=== PATIENT | female | born 1930 | race Caucasian/White ===

== ENCOUNTER 2016-06-12 14:56 | Observation (INO) | payer OTHER, BC ==
[~2016-06-12] VITALS: Ht 170.2 cm; Wt 74.3 kg
[~2016-06-12 14:56] MED LIST: ASPI81TA28; CHOL100010 PO; COEN10CA5; DILT120T8 PO; FLUT110A INH
[2016-06-12] MEDS ORDERED: SODIUM CHLORIDE 0.9% 1000ML 1,000 ML IV SCH (15:20)
--- NOTE | 2016-06-12 15:38 | DIAGNOSTIC IMAGING REPORT ---
CHEST ONE VIEW PORTABLE CLINICAL HISTORY: Stroke dyspnea COMPARISON STUDY: 11/29/2015 FINDINGS: The bones soft tissues and hemidiaphragms are normal. The cardiomediastinal silhouette is normal. The lungs are clear. The pulmonary vasculature is normal. IMPRESSION: Negative chest. Electronically signed by: Melo Buckley M.D. 06/12/2016 3:37 PM Dictated Date/Time: 06/12/2016 3:37 PM
[2016-06-12 16:09] LABS: BASO % 0.6 %; BASO ABS # 0.04 K/uL (0-0.2); COMPLETE YES; EOS % 1.3 %; HEMATOCRIT 49.8 % (37-47); IG% 0.1 %; LYMPH % 19.4 %; LYMPH ABS # 1.31 K/uL (1.2-3.4); MEAN CELL VOLUME 87.4 fL (80-100); MEAN CORPUSCULAR HEMOGLOBIN 29.5 pg (25-34); MEAN CORPUSCULAR HGB CONC 33.7 g/dl (32-36); MEAN PLATELET VOLUME 12.4 fL (7.4-10.4); NEUT % 68.6 %; PLATELET COUNT 152 K/uL (130-400); WHITE BLOOD COUNT 6.77 K/uL (4.8-10.8)
--- NOTE | 2016-06-12 16:33 | DIAGNOSTIC IMAGING REPORT ---
CT HEAD WITHOUT CONTRAST (CT) CLINICAL HISTORY: Stroke ARM AND LEG NUMBNESS COMPARISON STUDY: No previous studies for comparison. TECHNIQUE: Axial CT of the brain is performed from the vertex to the skull base. IV contrast was not administered for this examination. CT DOSE: 537.48 mGy.cm FINDINGS: No intra or extra-axial mass lesions are visualized. There is no CT evidence of acute cortical infarction. There is no evidence of midline shift. There is no acute hemorrhage. No calvarial fractures are visualized. There are patchy white matter hypodensities likely on a small vessel basis. There is no evidence of pathologic ventricular dilatation. There is no evidence of acute sinusitis IMPRESSION: No acute intracranial findings Electronically signed by: Mack Sarkar M.D. 06/12/2016 4:31 PM Dictated Date/Time: 06/12/2016 4:29 PM
[2016-06-12 16:39] LABS: URINE APPEARANCE CLOUDY (CLEAR); URINE BILIRUBIN NEG (NEG); URINE COLOR YELLOW; URINE NITRITE POS (NEG); URINE SPECIFIC GRAVITY 1.018 (1.000-1.030); UROBILINOGEN NEG (NEG)
[2016-06-12 16:41] LABS: BLOOD UREA NITROGEN 12 mg/dl (7-18); BUN/CREATININE RATIO 17.2 (10-20); CALCIUM 9.2 mg/dl (8.5-10.1); CARBON DIOXIDE 28 mmol/L (21-32); CHLORIDE 107 mmol/L (98-107); CKMB/CK RATIO 2.2 (0-3.0); CREATININE 0.71 mg/dl (0.60-1.20); GLUCOSE 87 mg/dl (70-99); POTASSIUM 4.3 mmol/L (3.5-5.1); SODIUM 143 mmol/L (136-145)
[2016-06-12 16:45] LABS: MANUAL MICROSCOPIC REQUIRED? NO; REVIEW REQ? NO
[2016-06-12 17:08] LABS: BENZODIAZEPINE, URINE NEG (NEG); COCAINE,URINE NEG (NEG); PHENCYCLIDINE, URINE NEG (NEG)
[2016-06-12 17:42] LABS: PARTIAL THROMBOPLASTIN RATIO 0.9; PROTHROMBIN TIME (PATIENT) 10.8 SECONDS (9.0-12.0)
[2016-06-12] MEDS ORDERED: HydrALAZINE HCL 20 MG/ML VIAL IV. PRN (18:00)
[2016-06-12] MEDS ORDERED: MAGNESIUM HYDROXIDE SUSP 30 ML UDC PO PRN (18:00)
[2016-06-12] MEDS ORDERED: ONDANSETRON INJ 2 MG/ML 2 ML VIAL IV PRN (18:00)
[2016-06-12] MEDS ORDERED: ACETAMINOPHEN 325 MG TAB PO PRN (18:00)
[2016-06-12] MEDS ORDERED: PHARMACIST DISCHARGE MED REC CONSULT PRN (18:00)
[2016-06-12] MEDS ORDERED: NITROGLYCERIN 0.4 MG SL PER TAB CHARGE SL PRN (18:00)
[2016-06-12] MEDS ORDERED: POLYETHYLENE (MIRALAX) 17 GM PACK PO PRN (18:00)
[2016-06-12] MEDS ORDERED: ALUMINUM/MAGNESIUM/SIMETH (MAALOX MAX) 30 ML UDC PO PRN (18:00)
--- NOTE | 2016-06-12 18:12 | EMERGENCY ROOM VISIT NOTE ---
History Report prepared by Mark: Saleem Lyons Under the Supervision of: Dr. Abhijit Gonsalez M.D. First contact with patient: 15:08 Chief Complaint: STROKE SYMPTOMS Stated Complaint: NUMBNESS ARM AND LEG, UNSTEADY History of Present Illness The patient is a 86 year old female who presents to the Emergency Room with complaints of numbness in her left arm and left foot starting 2 hours ago. She describes the numbness to be located from her elbow down and from her ankle down. She states that her left arm and ankle feels "off" compared to the right side. She reports some weakness on the left side but she is not sure if it is due to her symptoms of numbness. She denies any issues with speech, trouble swallowing, fevers, chills, headache, or any other complaints. As per family member, the patient was evaluated a few months ago for similar symptoms and she was diagnosed with a severe UTI. The patient has a history of TIA. She denies any history of hypertension. Source of History: patient Onset: 2 hours ago Position: arm (left), foot (left) Quality: numbness Associated Symptoms: + weakness, No chills, No fevers, No headache Review of Systems See HPI for pertinent positives & negatives. A total of 10 systems reviewed and were otherwise negative. Past Medical & Surgical Medical Problems: (1) Asthma (2) Breast cancer (3) Cardiac stent (4) Hyperlipidemia (5) Osteopenia (6) TIA (transient ischemic attack) Family History Cancer Social History Smoking Status: Never Smoker Alcohol Use: occasionally Marital Status: Occupation Status: retired Current/Historical Medications Scheduled Aspirin (Aspirin Ec), 81 DAILY Diltiazem Hcl (Cardizem), 120 MG PO DAILY Fluticasone Propionate Hfa (Flovent Hfa 110MCG Inhaler), 1 PUFF INH BID Allergies Coded Allergies: No Known Allergies (Unverified , 06/12/16) Physical Exam Vital Signs Date Time Temp Pulse Resp B/P Pulse Ox O2 Delivery O2 Flow Rate FiO2 06/12/16 16:17 90 06/12/16 16:17 88 183/100 06/12/16 15:58 96 Room Air 06/12/16 15:00 36.7 72 18 184/95 99 Room Air Physical Exam Constitutional: Vital signs reviewed. Eyes: Pupils are equal round reactive to light. Conjunctiva are noninjected. ENT: Pharynx is clear without erythema or exudate. Mucous membranes are moist. Neck supple without meningeal signs. Respiratory: Clear to auscultation bilaterally. Breath sounds are equal bilaterally. Cardiovascular: Regular rate and rhythm. No rubs or gallops. GI: Soft, nondistended and nontender. Bowel sounds are present. Musculoskeletal: No peripheral edema. No lower extremity tenderness. Integumentary: No cyanosis. Neurological: The patient is awake and alert. Cranial nerves II-XII are intact. Motor is 5 out of 5 all extremities. Sensation is intact to light touch all extremities. Normal speech. Normal gait. No pronator drift. No limb ataxia. Psychiatric: Normal affect. Medical Decision & Procedures ER Provider Diagnostic Interpretation: X-ray results as stated below per interpretation by me and the radiologist: CHEST ONE VIEW PORTABLE CLINICAL HISTORY: Stroke dyspnea COMPARISON STUDY: 11/29/2015 FINDINGS: The bones soft tissues and hemidiaphragms are normal. The cardiomediastinal silhouette is normal. The lungs are clear. The pulmonary vasculature is normal. IMPRESSION: Negative chest. Electronically signed by: Melo Buckley M.D. 06/12/2016 3:37 PM Dictated Date/Time: 06/12/2016 3:[address] results as stated below per my review and radiologist interpretation. CT HEAD WITHOUT CONTRAST (CT) CLINICAL HISTORY: Stroke ARM AND LEG NUMBNESS COMPARISON STUDY: No previous studies for comparison. TECHNIQUE: Axial CT of the brain is performed from the vertex to the skull base. IV contrast was not administered for this examination. CT DOSE: 537.48 mGy.cm FINDINGS: No intra or extra-axial mass lesions are visualized. There is no CT evidence of acute cortical infarction. There is no evidence of midline shift. There is no acute hemorrhage. No calvarial fractures are visualized. There are patchy white matter hypodensities likely on a small vessel basis. There is no evidence of pathologic ventricular dilatation. There is no evidence of acute sinusitis IMPRESSION: No acute intracranial findings Electronically signed by: Mack Sarkar M.D. 06/12/2016 4:31 PM Dictated Date/Time: 06/12/2016 4:29 PM Laboratory Results 06/12/16 15:48 Red Blood Count 5.70, Mean Corpuscular Volume 87.4, Mean Corpuscular Hemoglobin 29.5, Mean Corpuscular Hemoglobin Concent 33.7, Mean Platelet Volume 12.4, Neutrophils (%) (Auto) 68.6, Lymphocytes (%) (Auto) 19.4, Monocytes (%) (Auto) 10.0, Eosinophils (%) (Auto) 1.3, Basophils (%) (Auto) 0.6, Neutrophils # (Auto ) 4.64, Lymphocytes # (Auto) 1.31, Monocytes # (Auto) 0.68, Eosinophils # (Auto ) 0.09, Basophils # (Auto) 0.04 06/12/16 15:48 Test 06/12/16 15:48 06/12/16 15:55 06/12/16 16:20 06/12/16 17:20 White Blood Count 6.77 K/uL (4.8-10.8) Red Blood Count 5.70 M/uL (4.2-5.4) Hemoglobin 16.8 g/dL (12.0-16.0) Hematocrit 49.8 % (37-47) Mean Corpuscular Volume 87.4 fL (80-100) Mean Corpuscular Hemoglobin 29.5 pg (25-34) Mean Corpuscular Hemoglobin Concent 33.7 g/dl (32-36) Platelet Count 152 K/uL (130-400) Mean Platelet Volume 12.4 fL (7.4-10.4) Neutrophils (%) (Auto) 68.6 % Lymphocytes (%) (Auto) 19.4 % Monocytes (%) (Auto) 10.0 % Eosinophils (%) (Auto) 1.3 % Basophils (%) (Auto) 0.6 % Neutrophils # (Auto) 4.64 K/uL (1.4-6.5) Lymphocytes # (Auto) 1.31 K/uL (1.2-3.4) Monocytes # (Auto) 0.68 K/uL (0.11-0.59) Eosinophils # (Auto) 0.09 K/uL (0-0.5) Basophils # (Auto) 0.04 K/uL (0-0.2) RDW Standard Deviation 45.6 fL (36.4-46.3) RDW Coefficient of Variation 14.3 % (11.5-14.5) Immature Granulocyte % (Auto) 0.1 % Immature Granulocyte # (Auto) 0.01 K/uL (0.00-0.02) Anion Gap 8.0 mmol/L (3-11) Est Creatinine Clear Calc Drug Dose 60.1 ml/min Estimated GFR () 89.4 Estimated GFR (Non- 77.1 BUN/Creatinine Ratio 17.2 (10-20) Calcium Level 9.2 mg/dl (8.5-10.1) Total Creatine Kinase 69 U/L (26-192) Creatine Kinase MB 1.5 ng/ml (0.5-3.6) Creatine Kinase MB Ratio 2.2 (0-3.0) Troponin I < 0.015 ng/ml (0-0.045) Chemistry Specimen Hemolysis Bedside Glucose 97 mg/dl (70-90) Urine Color YELLOW Urine Appearance CLOUDY (CLEAR) Urine pH 5.0 (4.5-7.5) Urine Specific [place] 1.018 (1.000-1.030) Urine Protein NEG (NEG) Urine Glucose (UA) NEG (NEG) Urine Ketones 1+ (NEG) Urine Occult Blood NEG (NEG) Urine Nitrite POS (NEG) Urine Bilirubin NEG (NEG) Urine Urobilinogen NEG (NEG) Urine Leukocyte Esterase MODERATE (NEG) Urine WBC (Auto) >30 /hpf (0-5) Urine RBC (Auto) 0-4 /hpf (0-4) Urine Hyaline Casts (Auto) 5-10 /lpf (0-5) Urine Epithelial Cells (Auto) 5-10 /lpf (0-5) Urine Bacteria (Auto) 4+ (NEG) Urine Opiates Screen NEG (NEG) Urine Methadone, Qualitative NEG (NEG) Urine Barbiturates NEG (NEG) Urine Phencyclidine (PCP) Level NEG (NEG) Ur Amphetamine/Methamphetamine NEG (NEG) MDMA (Ecstasy) Screen NEG (NEG) Urine Benzodiazepines Screen NEG (NEG) Urine Cocaine Metabolite NEG (NEG) Urine Marijuana (THC) NEG (NEG) Prothrombin Time 10.8 SECONDS (9.0-12.0) Prothromb Time International Ratio 1.0 (0.9-1.1) Activated Partial Thromboplast Time 22.4 SECONDS (21.0-31.0) Partial Thromboplastin Ratio 0.9 Laboratory results as reviewed by me. Medications Administered Medications (Trade) Dose Ordered Sig/Laurita Route Start Time Stop Time Status Last Admin Dose Admin Sodium Chloride (Nss 1000ml) 1,000 ml @ 50 mls/hr Q20H IV 06/12/16 15:20 07/12/16 15:19 06/12/16 16:40 50 MLS/HR ECG Indication: other (left sided numbness) Rate (beats per minute): 82 Rhythm: normal sinus Findings: T-wave inversion (v1, v2), no acute ischemic change, no ectopy ED Course 1508: The patient was evaluated in room C12B. A complete history and physical exam was performed. 1520: Sodium Chloride 1000 ml @ 50 mls/hr IV 1650: I reevaluated the patient whose symptoms have almost completely resolved. I discussed the results and findings with her. She verbalized agreement of the treatment plan. [facility] The patient will be evaluated for further management and care. Medical Decision This is an 86-year-old female presents with left-sided numbness since approximately 1 PM today. Differential diagnosis includes TIA, CVA, metabolic derangement, demyelinating disease, neuropathy. I did perform a limited focused review of portions of the patient's old chart on the electronic medical record. The patient has had no recent pertinent visits to this hospital. I did evaluate the patient as noted above. The patient is presenting with subjective left-sided numbness to her arm and leg but her NIH scale is 0. She has no objective findings at this time. For this reason I do not believe she is a TPA candidate. She does have a history of TIAs and is on aspirin. She does state that she took aspirin today. IV access was established. The patient was placed on a continuous lead military analyst. I did order and personally review the patient's 12-lead EKG and chest x-ray as described above. I did order and review the patient's blood work as noted in the electronic medical record. I did order a CT of the head. I did review the images myself as well as the radiology report as described above. There is no evidence of acute process. I did obtain a urinalysis which was concerning for infection. I did discuss the test results with the patient. She states that her symptoms are improving significantly and almost gone. I did recommend hospitalization for further workup of her symptoms including MRI. I did discuss case with the hospitalist and disability case manager. Consults Time Called: [phone] Consulting Physician: Dr. Gardiner of the [facility]ist Service Returned Call: [phone] [facility]. Impression Primary Impression: Left sided numbness Additional Impression: UTI (urinary tract infection) Scribe Attestation The scribe's documentation has been prepared under my direct and personally reviewed by me in its entirety. I confirm that the note above accurately reflects all work, treatment, procedures, and medical decision making performed by me. Departure Information Dispostion Being Evaluated By Hospitalist Referrals Grayson Palacios M.D. (PCP) Patient Instructions My [facility] Health Problem Qualifiers
--- NOTE | 2016-06-12 18:17 | History and Physical ---
History & Physical Date & Time of Service: Jun 12, 2016 at 18:01 Chief Complaint: Numbness Arm And Leg, Unsteady Primary Care Physician: Grayson Palacios M.D. History of Present Illness Source: patient, family Patient is a pleasant 86 y/o female, with PMHx of irregular heart beat (?a.fib) , and CAD s/p proximal LAD stent in 2003, who presented to the ED because of left sided numbness/tingling. Symptoms started around 1300 this afternoon. Numbness/tingling was only to left arm and left lower extremity. Symptoms have completely resolved at this time. Patient has taken 325 mg ASA CORONARY CLINICAL SPECIALIST. Per daughter , patient had similar symptoms in the past and was found to have a UTI. Patient did complain of urinary symptoms 3 weeks, but symptoms resolved with cranberry juice, so patient did not seek medical care. Patient was found to be hypertensive in ED. Patient admits she has not take her Diltazem in the last couple of days. Patient states she has a hx of irregular heart beat, which she thinks may be a.fib, but she isn't sure. Daughter states patient does not have a.fib. Patient follows with [facility] [facility]. Patient/daughter deny confusion , vision changes, slurred speech, or facial droop. Patient denies hx of TIA/ CVA. Patient denies history of DVT/PE. Currently, patient states she is feeling well. Patient denies any fever, chills, sweats, lightheadedness, dizziness, vision changes, CP, palpitations, edema, SOB, wheezing, cough, abdominal pain, nausea, vomiting, diarrhea, urinary symptoms, melena, weakness, muscle/joint pain, anxiety/depression, active bleeding, or new skin discoloration/changes. Past Medical/Surgical History Medical Problems: 1. Asthma 2. CAD 3. Irregular heart beat Family History Cancer Social History Smoking Status: Never Smoker Marital Status: Occupational Status: retired Immunizations History of Influenza Vaccine: Yes History of Tetanus Vaccine?: Yes History of Pneumococcal: Yes History of Hepatitis B Vaccine: No Allergies Coded Allergies: No Known Allergies (Unverified , 06/12/16) Home Medications Scheduled Aspirin (Aspirin Ec), 81 DAILY Diltiazem Hcl (Cardizem), 120 MG PO DAILY Fluticasone Propionate Hfa (Flovent Hfa 110MCG Inhaler), 1 PUFF INH BID Physical Exam Vital Signs Date Time Temp Pulse Resp B/P Pulse Ox O2 Delivery O2 Flow Rate FiO2 06/12/16 16:17 90 06/12/16 16:17 88 183/100 06/12/16 15:58 96 Room Air 06/12/16 15:00 36.7 72 18 184/95 99 Room Air General Appearance: no apparent distress Head: normocephalic, atraumatic Eyes: normal inspection, PERRL ENT: hearing grossly normal Neck: supple Respiratory/Chest: lungs clear, no respiratory distress, no accessory muscle use Cardiovascular: regular rate, rhythm Abdomen/GI: normal bowel sounds, non tender, soft Back: normal inspection Extremities/Musculoskelatal: no calf tenderness, no pedal edema Neurologic/Psych: no motor/sensory deficits, alert, normal mood/affect, oriented x 3 Skin: normal color, warm/dry, no rash Diagnostics Laboratory Results Results Past 24 Hours Test 06/12/16 15:48 06/12/16 15:55 06/12/16 16:20 06/12/16 17:20 Range/Units White Blood Count 6.77 4.8-10.8 K/uL Red Blood Count 5.70 4.2-5.4 M/uL Hemoglobin 16.8 12.0-16.0 g/dL Hematocrit 49.8 37-47 % Mean Corpuscular Volume 87.4 80-100 fL Mean Corpuscular Hemoglobin 29.5 25-34 pg Mean Corpuscular Hemoglobin Concent 33.7 32-36 g/dl Platelet Count 152 130-400 K/uL Mean Platelet Volume 12.4 7.4-10.4 fL Neutrophils (%) (Auto) 68.6 % Lymphocytes (%) (Auto) 19.4 % Monocytes (%) (Auto) 10.0 % Eosinophils (%) (Auto) 1.3 % Basophils (%) (Auto) 0.6 % Neutrophils # (Auto) 4.64 1.4-6.5 K/uL Lymphocytes # (Auto) 1.31 1.2-3.4 K/uL Monocytes # (Auto) 0.68 0.11-0.59 K/uL Eosinophils # (Auto) 0.09 0-0.5 K/uL Basophils # (Auto) 0.04 0-0.2 K/uL RDW Standard Deviation 45.6 36.4-46.3 fL RDW Coefficient of Variation 14.3 11.5-14.5 % Immature Granulocyte % (Auto) 0.1 % Immature Granulocyte # (Auto) 0.01 0.00-0.02 K/uL Sodium Level 143 136-145 mmol/L Potassium Level 4.3 3.5-5.1 mmol/L Chloride Level 107 98-107 mmol/L Carbon Dioxide Level 28 21-32 mmol/L Anion Gap 8.0 3-11 mmol/L Blood Urea Nitrogen 12 7-18 mg/dl Creatinine 0.71 0.60-1.20 mg/dl Est Creatinine Clear Calc Drug Dose 60.1 ml/min Estimated GFR () 89.4 Estimated GFR (Non- 77.1 BUN/Creatinine Ratio 17.2 10-20 Random Glucose 87 70-99 mg/dl Calcium Level 9.2 8.5-10.1 mg/dl Total Creatine Kinase 69 26-192 U/L Creatine Kinase MB 1.5 0.5-3.6 ng/ml Creatine Kinase MB Ratio 2.2 0-3.0 Troponin I < 0.015 0-0.045 ng/ml Chemistry Specimen Hemolysis Bedside Glucose 97 70-90 mg/dl Urine Color YELLOW Urine Appearance CLOUDY CLEAR Urine pH 5.0 4.5-7.5 Urine Specific [place] 1.018 1.000-1.030 Urine Protein NEG NEG Urine Glucose (UA) NEG NEG Urine Ketones 1+ NEG Urine Occult Blood NEG NEG Urine Nitrite POS NEG Urine Bilirubin NEG NEG Urine Urobilinogen NEG NEG Urine Leukocyte Esterase MODERATE NEG Urine WBC (Auto) >30 0-5 /hpf Urine RBC (Auto) 0-4 0-4 /hpf Urine Hyaline Casts (Auto) 5-10 0-5 /lpf Urine Epithelial Cells (Auto) 5-10 0-5 /lpf Urine Bacteria (Auto) 4+ NEG Urine Opiates Screen NEG NEG Urine Methadone, Qualitative NEG NEG Urine Barbiturates NEG NEG Urine Phencyclidine (PCP) Level NEG NEG Ur Amphetamine/Methamphetamine NEG NEG MDMA (Ecstasy) Screen NEG NEG Urine Benzodiazepines Screen NEG NEG Urine Cocaine Metabolite NEG NEG Urine Marijuana (THC) NEG NEG Prothrombin Time 10.8 9.0-12.0 SECONDS Prothromb Time International Ratio 1.0 0.9-1.1 Activated Partial Thromboplast Time 22.4 21.0-31.0 SECONDS Partial Thromboplastin Ratio 0.[address] HEAD WITHOUT CONTRAST (CT) CLINICAL HISTORY: Stroke ARM AND LEG NUMBNESS COMPARISON STUDY: No previous studies for comparison. TECHNIQUE: Axial CT of the brain is performed from the vertex to the skull base. IV contrast was not administered for this examination. CT DOSE: 537.48 mGy.cm FINDINGS: No intra or extra-axial mass lesions are visualized. There is no CT evidence of acute cortical infarction. There is no evidence of midline shift. There is no acute hemorrhage. No calvarial fractures are visualized. There are patchy white matter hypodensities likely on a small vessel basis. There is no evidence of pathologic ventricular dilatation. There is no evidence of acute sinusitis IMPRESSION: No acute intracranial findings Electronically signed by: Mack Sarkar M.D. 06/12/2016 4:31 PM Dictated Date/Time: 06/12/2016 4:29 PM The status of this report is Signed. Draft = Not yet reviewed or approved by Radiologist. Signed = Reviewed and approved by Radiologist. CHEST ONE VIEW PORTABLE CLINICAL HISTORY: Stroke dyspnea COMPARISON STUDY: 11/29/2015 FINDINGS: The bones soft tissues and hemidiaphragms are normal. The cardiomediastinal silhouette is normal. The lungs are clear. The pulmonary vasculature is normal. IMPRESSION: Negative chest. Electronically signed by: Melo Buckley M.D. 06/12/2016 3:37 PM Dictated Date/Time: 06/12/2016 3:37 PM The status of this report is Signed. Draft = Not yet reviewed or approved by Radiologist. Signed = Reviewed and approved by Radiologist. EKG MARCELA AGUIRRE ID:[id number] 12-JUN-2016 16:01:39 [facility] Normal sinus rhythm Left anterior fascicular block Minimal voltage criteria for LVH, may be normal variant Nonspecific ST and T wave abnormality Abnormal ECG When compared with ECG of 25-MAY-2015 20:11, Significant changes have occurred 25mm/s 10mm/mV 150Hz 8.0 SP2 12SL 241 HD CRYS: 12 Referred by: Referred Self Unconfirmed Vent. rate 82 BPM IL interval 166 ms QRS duration 84 ms QT/QTc 370/432 ms P-R-T axes 53 -62 14 1930 (86 yr) Female 1lb Room: Loc:15 Grapple Operator:FLIP [place] ind: Impression Assessment and Plan 86 y/o female, with PMHx of irregular heart beat (?a.fib), and CAD s/p stent to proximal LAD in 2003, who presented to the ED because of left sided numbness/ tingling TIA, symptoms resolved: - Admit tele observation for cardiac monitoring - Trend cardiac enzymes - Head CT unremarkable - Brain MRI, carotid U/S, and ECHO - IV NSS @ 100 ml/hr - Check lipid panel and ha1c - Continue ASA 81 mg PO daily - PT/OT - Follow PRP and CBC UTI: - IV Rocephin - U/A negative, pending urine culture Irregular heart beat/CAD: - Patient thinks possibly a.fib - Follows with Dr. Meehan - Continue Diltazem 120 mg PO daily - ?a.fib--> ?need for anticoagulation- request records from [facility] [facility] HTN- likely TIA, no need for permissive HTN: - Hydralazine PRN Asthma: - Continue inhaler GI Prophylaxis: - Maalox PRN - IV Zofran PRN - Colace and/or Milk of Mag PRN DVT prophylaxis: COLBY and SCDs Code Status: LEVEL I, FULL Dispo: From home, lives alone. Patient is forgetting to take medications- social media director consulted *daughter would like to be updated- Tatainna, phone # [phone] Level of Care Telemetry Resuscitation Status FULL RESUSCITATION VTE Prophylaxis VTE Risk Assessment Done? Y/N: Yes Risk Level: Moderate Given or contraindicated: T.E.D. Stockings, SCD's
[2016-06-12] MEDS ORDERED: IV FLUIDS COMPLETED PRN (18:30)
[2016-06-12] MEDS ORDERED: GADAVIST IV PRN (20:00)
--- NOTE | 2016-06-12 20:01 | DIAGNOSTIC IMAGING REPORT ---
MRI OF THE BRAIN WITHOUT AND WITH IV CONTRAST CLINICAL HISTORY: Stroke LEFT ARM AND LEG NUMBNESS COMPARISON STUDY: Noncontrast CT scan dated 04/03/2017 TECHNIQUE: MRI of the brain was performed from the vertex to the skull base utilizing various T1 and T2 weighted sequences. Following the IV administration of 7.5 mL of Gadavist contrast, additional enhanced images were obtained. FINDINGS: Sagittal T1, axial diffusion, proton density and T2 weighted axial, coronal FLAIR, and pre and post axial T1-weighted images were acquired. These were supplemented with post gadolinium coronal T1 weighted images. No intra or extra-axial mass lesions are visualized. Axial diffusion-weighted images reveal no evidence of acute or subacute infarction. There is no evidence of ventricular dilatation. Proton density T2-weighted and FLAIR images reveal scattered foci of increased T2 signal within the white matter, likely on a small vessel basis. There are no abnormal flow voids. There is no evidence of pathologic enhancement. IMPRESSION: 1. No acute intracranial findings 2. No evidence of intracranial mass 3. No evidence of acute or subacute infarction 4. White matter disease, likely on a small vessel basis Electronically signed by: Mack Sarkar M.D. 06/12/2016 7:59 PM Dictated Date/Time: 06/12/2016 7:58 PM
--- NOTE | 2016-06-12 20:31 | DIAGNOSTIC IMAGING REPORT ---
ULTRASOUND OF THE CAROTID ARTERIES CLINICAL HISTORY: Stroke COMPARISON STUDY: None. TECHNIQUE: Real-time, grayscale, and color Doppler sonography of the carotid arteries was performed. Imaging reviewed in the transverse and longitudinal planes. NASCET criteria was utilized for stenosis calcification. FINDINGS: There is mild atherosclerotic plaque present . The peak systolic velocity within the right internal carotid artery is 103 cm/sec. The systolic velocity ratio of right internal to common carotid artery is 1.5. The peak systolic velocity within the left internal carotid artery is 65 cm/sec. The systolic velocity ratio left internal to common carotid artery is 1. Antegrade flow is seen in the vertebral arteries. The external carotid arteries are patent. . IMPRESSION: No evidence of hemodynamically significant carotid stenosis. Electronically signed by: Mack Sarkar M.D. 06/12/2016 8:30 PM Dictated Date/Time: 06/12/2016 8:29 PM
[2016-06-12] MEDS: FLUTICASONE HFA 110MCG INHALER INH SCH (21:00)
[2016-06-12 21:25] VITALS: BP 174/76; PULSE 92; TEMP 36.9; Ht 170.2 cm; Wt 74.3 kg
[2016-06-12 21:46] VITALS: O2SAT 96
[2016-06-12] MEDS ORDERED: CEFTRIAXONE SOD INJ 1 GM in DEXTROSE 5% ADD-VANTAGE 50ML 50 ML IV SCH (22:00)
[2016-06-12] MEDS: SODIUM CHLORIDE 0.9% 1000ML 1,000 ML IV SCH (22:22)
[2016-06-12] MEDS: DILTIAZEM HCL 120 MG EXT REL CAP PO SCH (22:22)
[2016-06-12 23:16] VITALS: BP 162/82; PULSE 78; TEMP 37; O2SAT 96
[2016-06-13 03:57] VITALS: BP 128/76; PULSE 67; TEMP 36.6; O2SAT 91
[2016-06-13] MEDS: SODIUM CHLORIDE 0.9% 1000ML 1,000 ML IV SCH (05:53)
[2016-06-13 06:13] LABS: ESTIMATED AVERAGE GLUCOSE 114 mg/dl; HA1C FLAG Normal (Normal)
[2016-06-13 07:42] VITALS: BP 129/79; PULSE 56; TEMP 36.7; O2SAT 92
[2016-06-13 07:56] LABS: BASO % 1.5 %; BASO ABS # 0.08 K/uL (0-0.2); COMPLETE YES; EOS % 4.2 %; HEMATOCRIT 42.9 % (37-47); IG% 0.2 %; LYMPH % 34.2 %; MEAN CELL VOLUME 87.2 fL (80-100); MEAN CORPUSCULAR HEMOGLOBIN 28.7 pg (25-34); MEAN CORPUSCULAR HGB CONC 32.9 g/dl (32-36); MEAN PLATELET VOLUME 12.3 fL (7.4-10.4); MONO % 11.8 %; NEUT % 48.1 %; PLATELET COUNT 171 K/uL (130-400); RED BLOOD COUNT 4.92 M/uL (4.2-5.4); WHITE BLOOD COUNT 5.27 K/uL (4.8-10.8)
[2016-06-13 08:33] LABS: BLOOD UREA NITROGEN 10 mg/dl (7-18); BUN/CREATININE RATIO 21.5 (10-20); CARBON DIOXIDE 26 mmol/L (21-32); CHLORIDE 111 mmol/L (98-107); CHOLESTEROL 189 mg/dl (0-200); CREATININE 0.48 mg/dl (0.60-1.20); GLUCOSE 85 mg/dl (70-99); POTASSIUM 3.5 mmol/L (3.5-5.1); SODIUM 145 mmol/L (136-145); TRIGLYCERIDES 88 mg/dl (0-150); VERY LOW DENSITY LIPOPROT CALC 18 mg/dl
--- NOTE | 2016-06-13 08:35 | Hospitalist Progress Note ---
Hospitalist Progress Note Date of Service Jun 13, 2016. (Geovanna Romo PA-C) Subjective Pt evaluation today including: conversation w/ patient, physical exam, chart review, lab review, review of studies, review of inpatient medication list Pain: None PO Intake: Good Voiding: no voiding problems The patient was seen and examined this morning. Her IV site got dislodged by accident, so was bleeding when I went in to see her. Pt reports doing fine this morning, overnight slept well. She has no symptoms of dizziness, lightheadedness , chest pain, palpitations, sob, headache, change in vision, tinnitus, abd pain , n/v/d/c, dysuria. She is anticipating echo today and then d/c home. All Other Systems: Reviewed and Negative (other than listed above. ) (Geovanna Romo PA-C) Objective Vital Signs Date Time Temp Pulse Resp B/P Pulse Ox O2 Delivery O2 Flow Rate FiO2 06/13/16 07:48 Room Air 06/13/16 07:42 36.7 56 18 129/79 92 Room Air 06/13/16 04:02 Room Air 06/13/16 03:57 36.6 67 22 128/76 91 Room Air 06/13/16 00:02 Room Air 06/12/16 23:16 37.0 78 19 162/82 96 Room Air 06/12/16 21:46 96 Room Air 06/12/16 21:25 36.9 92 18 174/76 06/12/16 18:36 106 18 187/116 96 Room Air 06/12/16 16:17 90 06/12/16 16:17 88 183/100 06/12/16 15:58 96 Room Air 06/12/16 15:00 36.7 72 18 184/95 99 Room Air (Geovanna Romo PA-C) Physical Exam General Appearance: WD/WN, no apparent distress Eyes: PERRL, EOMI ENT: hearing grossly normal, pharynx normal Neck: supple, no JVD Respiratory/Chest: lungs clear, no respiratory distress, no accessory muscle use Cardiovascular: regular rate, rhythm, no murmur Abdomen: normal bowel sounds, non tender, soft Extremities: non-tender, no pedal edema, no calf tenderness Neurologic/Psychiatric: alert, normal mood/affect, oriented x 3 Skin: normal color, warm/dry (Geovanna Romo, KARISSA) Laboratory Results Last 24 Hours Test 06/12/16 15:48 06/12/16 15:55 06/12/16 16:20 06/12/16 17:20 White Blood Count 6.77 K/uL Red Blood Count 5.70 M/uL Hemoglobin 16.8 g/dL Hematocrit 49.8 % Mean Corpuscular Volume 87.4 fL Mean Corpuscular Hemoglobin 29.5 pg Mean Corpuscular Hemoglobin Concent 33.7 g/dl Platelet Count 152 K/uL Mean Platelet Volume 12.4 fL Neutrophils (%) (Auto) 68.6 % Lymphocytes (%) (Auto) 19.4 % Monocytes (%) (Auto) 10.0 % Eosinophils (%) (Auto) 1.3 % Basophils (%) (Auto) 0.6 % Neutrophils # (Auto) 4.64 K/uL Lymphocytes # (Auto) 1.31 K/uL Monocytes # (Auto) 0.68 K/uL Eosinophils # (Auto) 0.09 K/uL Basophils # (Auto) 0.04 K/uL RDW Standard Deviation 45.6 fL RDW Coefficient of Variation 14.3 % Immature Granulocyte % (Auto) 0.1 % Immature Granulocyte # (Auto) 0.01 K/uL Sodium Level 143 mmol/L Potassium Level 4.3 mmol/L Chloride Level 107 mmol/L Carbon Dioxide Level 28 mmol/L Anion Gap 8.0 mmol/L Blood Urea Nitrogen 12 mg/dl Creatinine 0.71 mg/dl Est Creatinine Clear Calc Drug Dose 60.1 ml/min Estimated GFR () 89.4 Estimated GFR (Non- 77.1 BUN/Creatinine Ratio 17.2 Random Glucose 87 mg/dl Estimated Average Glucose 114 mg/dl Hemoglobin A1c 5.6 % Calcium Level 9.2 mg/dl Total Creatine Kinase 69 U/L Creatine Kinase MB 1.5 ng/ml Creatine Kinase MB Ratio 2.2 Troponin I < 0.015 ng/ml Chemistry Specimen Hemolysis Bedside Glucose 97 mg/dl Urine Color YELLOW Urine Appearance CLOUDY Urine pH 5.0 Urine Specific [place] 1.018 Urine Protein NEG Urine Glucose (UA) NEG Urine Ketones 1+ Urine Occult Blood NEG Urine Nitrite POS Urine Bilirubin NEG Urine Urobilinogen NEG Urine Leukocyte Esterase MODERATE Urine WBC (Auto) >30 /hpf Urine RBC (Auto) 0-4 /hpf Urine Hyaline Casts (Auto) 5-10 /lpf Urine Epithelial Cells (Auto) 5-10 /lpf Urine Bacteria (Auto) 4+ Urine Opiates Screen NEG Urine Methadone, Qualitative NEG Urine Barbiturates NEG Urine Phencyclidine (PCP) Level NEG Ur Amphetamine/Methamphetamine NEG MDMA (Ecstasy) Screen NEG Urine Benzodiazepines Screen NEG Urine Cocaine Metabolite NEG Urine Marijuana (THC) NEG Prothrombin Time 10.8 SECONDS Prothromb Time International Ratio 1.0 Activated Partial Thromboplast Time 22.4 SECONDS Partial Thromboplastin Ratio 0.9 Test 06/12/16 22:53 06/13/16 07:00 06/13/16 07:13 Creatine Kinase MB 1.4 ng/ml Creatine Kinase MB Ratio Troponin I 0.016 ng/ml White Blood Count 5.27 K/uL Red Blood Count 4.92 M/uL Hemoglobin 14.1 g/dL Hematocrit 42.9 % Mean Corpuscular Volume 87.2 fL Mean Corpuscular Hemoglobin 28.7 pg Mean Corpuscular Hemoglobin Concent 32.9 g/dl Platelet Count 171 K/uL Mean Platelet Volume 12.3 fL Neutrophils (%) (Auto) 48.1 % Lymphocytes (%) (Auto) 34.2 % Monocytes (%) (Auto) 11.8 % Eosinophils (%) (Auto) 4.2 % Basophils (%) (Auto) 1.5 % Neutrophils # (Auto) 2.54 K/uL Lymphocytes # (Auto) 1.80 K/uL Monocytes # (Auto) 0.62 K/uL Eosinophils # (Auto) 0.22 K/uL Basophils # (Auto) 0.08 K/uL RDW Standard Deviation 46.0 fL RDW Coefficient of Variation 14.4 % Immature Granulocyte % (Auto) 0.2 % Immature Granulocyte # (Auto) 0.01 K/uL (Geovanna Romo PA-C) Assessment and Plan 86 y/o female, with PMHx of irregular heart beat (?a.fib), and CAD s/p stent to proximal LAD in 2003, who presented to the ED because of left sided numbness/ tingling TIA, symptoms resolved: - Admit tele observation for cardiac monitoring - CE negative x 3 - Head CT unremarkable - Brain MRI, carotid U/S also negative for acute ischemic findings - await ECHO - IV NSS @ 100 ml/hr - Follow lipid panel and ha1c - Continue ASA 81 mg PO daily - PT/OT consulted- pt lives in a [facility] apartment where nursing staff is available to her 05/11 in [place], she reports she takes her medications as prescribed. She has a pill box where her meds are organized. UTI: - IV Rocephin - U/A negative, growing Gram neg bacilli, follow sensitivities. Can d/c on course of cipro if sensitivities allow Irregular heart beat/CAD: - Patient thinks possibly a.fib - Follows with Dr. Meehan - Continue Diltazem 120 mg PO daily - ?a.fib--> ?need for anticoagulation- request records from [place] [facility] HTN- likely TIA, no need for permissive HTN: - Hydralazine PRN Asthma: - Continue inhaler GI Prophylaxis: - Maalox PRN - IV Zofran PRN - Colace and/or Milk of Mag PRN DVT ppx:: COLBY and SCDs Code Status:FULL CODE Dispo: From home, lives alone. Patient is forgetting to take medications- social media intern consulted, daughter planning on visiting today after 11am. *daughter would like to be updated- Tatianna, phone # [phone] (Geovanna Romo PA-C) Attending Attestation: Pt seen/examined, chart reviewed, care plan d/w AIDAN Romo. I agree w/ the ortiz components of her documentation. Tele normal overnight. Patient feels well. Paresthesias resolved. VSS exam - neuro: CN 3-12 intact strength 5/5 x 4 exts gait normal sensory intact to light touch x 4 exts speech clear and fluent A/P: Sensory TIA - resolved. w/u (MRI, carotids, etc) negative. 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 Stop asa, switch to plavix for secondary event prophylaxis. h/o CAD with SC - unclear why she is not on statin or BB. awaiting records. GNR UTI - received rocephin late last pm. reasonable to d/c on no abx and await sensitivities - should be back in AM tomorrow. can call in oral abx then. daughter extensively updated. ok to d/c home with home health in place. Mynor JENSEN MD (Zaki Jensen MD)
[2016-06-13 08:39] LABS: CHOLESTEROL/HDL RATIO 4.8; HDL CHOLESTEROL 39 mg/dl; LDL CHOLESTEROL CALCULATED 132 mg/dl
[2016-06-13] MEDS ORDERED: DILTIAZEM HCL 120 MG PO SCH (09:00)
[2016-06-13] MEDS: FLUTICASONE HFA 110MCG INHALER INH SCH (09:00)
[2016-06-13] MEDS ORDERED: ASPIRIN 81 MG ECTAB PO SCH ×2 (09:00)
[2016-06-13] MEDS: DILTIAZEM HCL 120 MG EXT REL CAP PO SCH (09:12)
--- NOTE | 2016-06-13 12:23 | Discharge Instructions ---
Discharge Instructions Admission Reason for Admission: TIA (Geovanna Romo PA-C) Discharge Discharge Diagnosis / Problem: Transient Ischemic Attack (Geovanna Romo PA-C) Discharge Goals Goal(s): Decrease discomfort, Improve function, Increase independence, Improve disease control (Geovanna Romo PA-C) Activity Recommendations Activity Limitations: per Instructions/Follow-up section Lifting Limitations: no more than 10 pounds, gradually increase as tolerated Exercise/Sports Limitations: rest today, gradually increase as tolerated Shower/Bathe: no limitations Driving or Machine Use: Do NOT drive, must be cleared by your family physician at follow up, if applicable. . (Geovanna Romo PA-C) Instructions / Follow-Up Instructions / Follow-Up You were admitted to [facility] with left arm and leg numbness and tingling, and diagnosed with a transient ischemic attack. Imaging studies which were completed include: - CT and MRI of the head/brain which were normal. - Carotid arteries (neck arteries) checked for plaque buildup and you have mild plaque present, but nothing that would cause you to become lightheaded or cause your other symptoms at this time. - An echocardiogram of your heart was completed (ultrasound of the heart) and showed very mild diastolic (relaxation) dysfunction, no valvular abnormalities, preserved EF. It was determined that this TIA was a result of aspirin failure so your medications were changed to Plavix. Continue taking this as directed. You were found to have a urinary tract infection. -The culture sensitivity was not back at the time of discharge. You were placed on intravenous antibiotics and had a dose late last evening, which will cover you until late tonight. A prescription will be called into your pharmacy tomorrow morning after culture sensitivities are back. Continue taking other medications as prescribed. Follow up with your PCP within 1 week. (Geovanna Romo PA-C) Current Hospital Diet Patient's current hospital diet: AHA Diet (Heart Healthy) (Geovanna Romo PA-C) Discharge Diet Recommended Diet: AHA Diet (Heart Healthy) (Geovanna Romo PA-C) Procedures Procedures Performed: CT brain MRI brain Carotid ultrasound Echocardiogram (Geovnana Romo PA-C) Pending Studies Studies pending at discharge: no (Geovanna Romo PA-C) Laboratory Results Hemoglobin A1c Test 06/12/16 15:48 Range/Units Estimated Average Glucose 114 mg/dl Hemoglobin A1c 5.6 4.5-5.6 % Lipid Panel Test 06/13/16 07:13 Range/Units Triglycerides Level 88 0-150 mg/dl Cholesterol Level 189 0-200 mg/dl HDL Cholesterol 39 mg/dl Cholesterol/HDL Ratio 4.8 LDL Cholesterol, Calculated 132 mg/dl (Geovanna Romo PA-C) Medical Emergencies . Who to Call and When: Medical Emergencies: If at any time you feel your situation is an emergency, please call 911 immediately. . (Geovanna Romo PA-C) Non-Emergent Contact Non-Emergency issues call your: Primary Care Provider Call Non-Emergent contact if: temperature is above 100.5, your pain is not controlled, your pain is worsening, you have any medication questions headace, worsening vision, blurred vision, onset of limb weakness or numbness/ tingling, chest pain, shortness of breath, abdominal pain, nausea, vomiting, diarrhea, constipation, or if you have other concerns with your health. . (Geovanna Romo PA-C) Past History Medical & Surgical History: (1) TIA (transient ischemic attack) (2) UTI (urinary tract infection) (3) Hyperlipidemia (4) Cardiac stent (5) Breast cancer (6) Left sided numbness (Geovanna Romo PA-C) . "Provider Documentation" section prepared by Lilli Romo. (Geovanna Romo PA-C) Attending Attestation: Pt seen/examined & care plan d/w AIDAN Romo on day of discharge. I agree with the ortiz components of her discharge instructions. Zaki Jensen MD (Zaki Jensen MD) VTE Core Measure Inpt VTE Proph given/why not?: T.E.Candi. Stockings, SCD's (Geovanna Romo PA-C)
[2016-06-13 12:33] VITALS: BP 146/76; PULSE 78; TEMP 36.8; O2SAT 94
[2016-06-13 12:41] VITALS: O2SAT 94
--- NOTE | 2016-06-13 13:00 | Discharge Summary ---
Discharge Summary Date of Service Jun 13, 2016. (Geovanna Romo PA-C) Discharge Summary Admission Date: Jun 12, 2016 at 18:00 Discharge Date: Jun 13, 2016 Discharge Disposition: Home Principal Diagnosis: Transient ischemic attack Problems/Secondary Diagnoses: CAD s/p cabg and placement of ASIYA in the proximal LAD in 2004, hx NSTEMI, yhs atrial tachycardia and frequent symptomatic PACs, Breast cancer, HTN, hyperlipidemia, asthma Immunizations: Have You Had Influenza Vaccine: Yes History of Tetanus Vaccine?: Yes History of Pneumococcal: Yes History of Hepatitis B Vaccine: No Procedures: Echocardiogram -- Conclusions -- * The study was technically difficult. * The left ventricle is normal in size. * Left ventricular systolic function is normal. * Ejection Fraction = 60-65%. * The left ventricular wall motion is normal. * There is moderate concentric left ventricular hypertrophy. * Grade I diastolic dysfunction, (abnormal relaxation pattern). * The left atrium is mildly dilated. * There is mild tricuspid regurgitation. * Right ventricular systolic pressure is normal. CT HEAD WITHOUT CONTRAST (CT) CLINICAL HISTORY: Stroke ARM AND LEG NUMBNESS COMPARISON STUDY: No previous studies for comparison. TECHNIQUE: Axial CT of the brain is performed from the vertex to the skull base. IV contrast was not administered for this examination. CT DOSE: 537.48 mGy.cm FINDINGS: No intra or extra-axial mass lesions are visualized. There is no CT evidence of acute cortical infarction. There is no evidence of midline shift. There is no acute hemorrhage. No calvarial fractures are visualized. There are patchy white matter hypodensities likely on a small vessel basis. There is no evidence of pathologic ventricular dilatation. There is no evidence of acute sinusitis IMPRESSION: No acute intracranial findings Electronically signed by: Mack Sarkar M.D. 06/12/2016 4:31 PM Dictated Date/Time: 06/12/2016 4:29 PM The status of this report is Signed. CHEST ONE VIEW PORTABLE CLINICAL HISTORY: Stroke dyspnea COMPARISON STUDY: 11/29/2015 FINDINGS: The bones soft tissues and hemidiaphragms are normal. The cardiomediastinal silhouette is normal. The lungs are clear. The pulmonary vasculature is normal. IMPRESSION: Negative chest. Electronically signed by: Melo Buckley M.D. 06/12/2016 3:37 PM Dictated Date/Time: 06/12/2016 3:37 PM The status of this report is Signed. ULTRASOUND OF THE CAROTID ARTERIES CLINICAL HISTORY: Stroke COMPARISON STUDY: None. TECHNIQUE: Real-time, grayscale, and color Doppler sonography of the carotid arteries was performed. Imaging reviewed in the transverse and longitudinal planes. NASCET criteria was utilized for stenosis calcification. FINDINGS: There is mild atherosclerotic plaque present . The peak systolic velocity within the right internal carotid artery is 103 cm/sec. The systolic velocity ratio of right internal to common carotid artery is 1.5. The peak systolic velocity within the left internal carotid artery is 65 cm/sec. The systolic velocity ratio left internal to common carotid artery is 1. Antegrade flow is seen in the vertebral arteries. The external carotid arteries are patent. . IMPRESSION: No evidence of hemodynamically significant carotid stenosis. Electronically signed by: Mack Sarkar M.D. 06/12/2016 8:30 PM Dictated Date/Time: 06/12/2016 8:29 PM The status of this report is Signed. MRI OF THE BRAIN WITHOUT AND WITH IV CONTRAST CLINICAL HISTORY: Stroke LEFT ARM AND LEG NUMBNESS COMPARISON STUDY: Noncontrast CT scan dated 04/03/2017 TECHNIQUE: MRI of the brain was performed from the vertex to the skull base utilizing various T1 and T2 weighted sequences. Following the IV administration of 7.5 mL of Gadavist contrast, additional enhanced images were obtained. FINDINGS: Sagittal T1, axial diffusion, proton density and T2 weighted axial, coronal FLAIR, and pre and post axial T1-weighted images were acquired. These were supplemented with post gadolinium coronal T1 weighted images. No intra or extra-axial mass lesions are visualized. Axial diffusion-weighted images reveal no evidence of acute or subacute infarction. There is no evidence of ventricular dilatation. Proton density T2-weighted and FLAIR images reveal scattered foci of increased T2 signal within the white matter, likely on a small vessel basis. There are no abnormal flow voids. There is no evidence of pathologic enhancement. IMPRESSION: 1. No acute intracranial findings 2. No evidence of intracranial mass 3. No evidence of acute or subacute infarction 4. White matter disease, likely on a small vessel basis Electronically signed by: Mack Sarkar M.D. 06/12/2016 7:59 PM Dictated Date/Time: 06/12/2016 7:58 PM The status of this report is Signed. Consultations: None (Geovanna Romo, MAXC) Problems/Secondary Diagnoses: UTI early dementia vs mild cognitive impairment (Zaki Jensen MD) Medication Reconciliation New Medications: Clopidogrel Bisulfate (Plavix) 75 Mg Tab 1 TAB PO DAILY for 30 Days, #30 TAB 1 Refill Continued Medications: Diltiazem Hcl (Cardizem) 120 Mg Tab 120 MG PO DAILY for 30 Days, #30 DOSE (This prescription has been renewed) Fluticasone Propionate Hfa (Flovent Hfa 110MCG Inhaler) 110 Mcg/ Aer 1 PUFF INH BID, INH Discontinued Medications: Aspirin (Aspirin Ec) 81 Mg Tab 81 DAILY Discharge Exam The patient was seen and examined this morning. Her IV site got dislodged by accident, so was bleeding when I went in to see her. Pt reports doing fine this morning, overnight slept well. She has no symptoms of dizziness, lightheadedness , chest pain, palpitations, sob, headache, change in vision, tinnitus, abd pain , n/v/d/c, dysuria. She is anticipating echo today and then d/c home. Review of Systems: Constitutional: No chills, No fever, No sweats Eyes: No diplopia ENT: No tinnitus, No trouble swallowing Respiratory: No cough, No dyspnea at rest, No dyspnea on exertion, No shortness of breath Cardiovascular: No chest pain, No palpitations Abdomen: No constipation, No diarrhea, No nausea, No pain, No vomiting Musculoskeletal: No calf pain, No swelling Genitourinary - Female: No dysuria Neurologic: No balance problems, No memory loss, No numbness/tingling, No paralysis, No vertigo, No weakness Psychiatric: No anxiety Integumentary: No itch, No rash Physical Exam: General Appearance: WD/WN, no apparent distress Eyes: PERRL, EOMI ENT: hearing grossly normal, pharynx normal Neck: supple, no JVD Respiratory/Chest: lungs clear, normal breath sounds, no respiratory distress, no accessory muscle use Cardiovascular: regular rate, rhythm, no murmur, normal peripheral pulses Abdomen / GI: normal bowel sounds, non tender, no organomegaly Extremities: normal inspection, no calf tenderness, no pedal edema, normal range of motion Neurologic/Psychiatric: no motor/sensory deficits, alert, normal mood/affect , oriented x 3 Skin: normal color, warm/dry (Geovanna Romo PA-C) Hospital Course H&P per Amber Javed PA-C History of Present Illness Source: patient, family Patient is a pleasant 86 y/o female, with PMHx of irregular heart beat (?a.fib) , and CAD s/p proximal LAD stent in 2003, who presented to the ED because of left sided numbness/tingling. Symptoms started around 1300 this afternoon. Numbness/tingling was only to left arm and left lower extremity. Symptoms have completely resolved at this time. Patient has taken 325 mg ASA MEDICATION COORDINATOR. Per daughter , patient had similar symptoms in the past and was found to have a UTI. Patient did complain of urinary symptoms 3 weeks, but symptoms resolved with cranberry juice, so patient did not seek medical care. Patient was found to be hypertensive in ED. Patient admits she has not take her Diltazem in the last couple of days. Patient states she has a hx of irregular heart beat, which she thinks may be a.fib, but she isn't sure. Daughter states patient does not have a.fib. Patient follows with [facility]. Patient/daughter deny confusion , vision changes, slurred speech, or facial droop. Patient denies hx of TIA/ CVA. Patient denies history of DVT/PE. Currently, patient states she is feeling well. Patient denies any fever, chills, sweats, lightheadedness, dizziness, vision changes, CP, palpitations, edema, SOB, wheezing, cough, abdominal pain, nausea, vomiting, diarrhea, urinary symptoms, melena, weakness, muscle/joint pain, anxiety/depression, active bleeding, or new skin discoloration/changes. Vital Signs Date Time Temp Pulse Resp B/P Pulse Ox O2 Delivery O2 Flow Rate FiO2 06/12/16 16:17 90 06/12/16 16:17 88 183/100 06/12/16 15:58 96 Room Air 06/12/16 15:00 36.7 72 18 184/95 99 Room Air General Appearance: no apparent distress Head: normocephalic, atraumatic Eyes: normal inspection, PERRL ENT: hearing grossly normal Neck: supple Respiratory/Chest: lungs clear, no respiratory distress, no accessory muscle use Cardiovascular: regular rate, rhythm Abdomen/GI: normal bowel sounds, non tender, soft Back: normal inspection Extremities/Musculoskelatal: no calf tenderness, no pedal edema Neurologic/Psych: no motor/sensory deficits, alert, normal mood/affect, oriented x 3 Skin: normal color, warm/dry, no rash Hospital Course: 86 y/o female, with PMHx CAD s/p cabg and placement of ASIYA in the proximal LAD in 2003, hx NSTEMI, hx atrial tachycardia and frequent symptomatic PACs, Breast cancer, HTN, hyperlipidemia, asthma, who presented to the ED because of left sided numbness/tingling TIA, symptoms resolved: - Admit tele observation for cardiac monitoring - At this time will determine this is aspirin failure (although cannot prove the patient has been taking meds every day without missing doses), and will switch the patient onto plavix. - Follow up with her PCP, Dr. Correia within 3 days, preferably Saturday. - CE negative x 3 - Head CT unremarkable - Brain MRI, carotid U/S also negative for acute ischemic findings - ECHO completed 06/13 -- Conclusions -- * The study was technically difficult. * The left ventricle is normal in size. * Left ventricular systolic function is normal. * Ejection Fraction = 60-65%. * The left ventricular wall motion is normal. * There is moderate concentric left ventricular hypertrophy. * Grade I diastolic dysfunction, (abnormal relaxation pattern). * The left atrium is mildly dilated. * There is mild tricuspid regurgitation. * Right ventricular systolic pressure is normal. - IV NSS @ 100 ml/hr - Follow lipid panel and ha1c - Continue ASA 81 mg PO daily - PT/OT consulted- pt lives in a [facility] apartment where nursing staff is available to her 05/11 in [place], she reports she takes her medications as prescribed. She has a pill box where her meds are organized. CM to arrange Home health services with pill box and possible nursing checks. UTI: - IV Rocephin - U/A negative, growing Gram neg bacilli, follow sensitivities. A prescription will be sent to her pharmacy tomorrow morning pending sensitivities return. hx atrial tachycardia and frequent symptomatic PACs CAD s/p ASIYA stent in the proximal LAD Hx Nstemi - Continue Diltazem 120 mg PO daily - Cont asa 81 mg daily - no hx of atrial fibrillation, follows with Dr. Meehan with [facility] - Fu with Dr. Meehan on Saturday, CM has requested an appointment. HTN- likely TIA, no need for permissive HTN: - Hydralazine PRN - VSS since admission Hyperlipidemia - not on a statin, pt reports regular diet. Asthma: - Continue inhaler GI Prophylaxis: - Maalox PRN - IV Zofran PRN - Colace and/or Milk of Mag PRN DVT ppx:: COLBY and SCDs Code Status:FULL CODE Dispo: From home, lives alone. Home health to see the patient for pill box. Follow up with PCP within 3 days, preferably on Saturday. Total Time Spent: Greater than 30 minutes This includes examination of the patient, discharge planning, medication reconciliation, and communication with other providers. (Geovanna Romo PA-C) Attending Attestation: Pt seen/examined, chart reviewed, care plan d/w AIDAN Romo on day of discharge. I agree w/ her discharge summary as outlined. 86yo female with h/o CAD, asthma, hyperlipidemia (not on treatment) and prior TIA who presented with left-sided paresthesias. Symptoms resolved after several hours. Work-up including MRI brain, echo, telemetry, carotid duplex - all normal. Symptoms c/w TIA. Patient had been taking aspirin prior to this event (according to her recollection). Thus, would consider aspirin as a treatment "failure" and thus will change her aspirin to plavix for secondary TIA/stroke prevention. Lipids were elevated with LDL of about 130. In light of her CAD history I am unclear why she is not on a statin agent. Her course was complicated by gram-negative kristy UTI. ID and sensitivities were pending at time of discharge. Discharge exam: gen - NAD no facial droop speech fluent neck - no JVD heart - RRR, s1, s2 lungs - CTA b/l abd - soft neuro - strength 5/5 x 4 exts; sensory intact to light touch x 4 exts Following discharge, once final urine culture results become available, an oral antibiotic will be called in for her UTI. Lastly, home health services have been arranged at discharge. Zaki Jensen MD Total Time Spent: Greater than 30 minutes (Zaki Jensen MD) Discharge Instructions Please refer to the electronic Patient Visit Report (Discharge Instructions) for additional information. (Geovanna Romo, KARISSA) Follow-Up Follow up with your Primary Care Provider within 1 week. (Geovanna Romo PA-C) Dr. Goodwin on June 18 at 10:30am. (Zaki Jensen MD) Additional Copies To Grayson Palacios M.D.; Gulshan Goodwin MD
--- NOTE | 2016-06-13 13:15 | ECHOCARDIOGRAM REPORT ---
*NOTICE TO RECEIVING [employer] This information is strictly Confidential and protected under [place] law. [place] law prohibits you from making any further disclosure of this information unless further disclosure is expressly permitted by the written consent of the person to whom it pertains or is authorized by law. A general authorization for the release of medical or other information is not sufficient for this purpose. Hospital accepts no responsibility if the information is made available to any other person, INCLUDING THE PATIENT. Interpretation Summary * Name: MARCELA AGUIRRE Study Date: 06/13/2016 10:48 AM BP: 129/79 mmHg * Patient Location: S2 HR: 61 * : 1930 (M/d/yyyy) Gender: Female Height: 67 in * Age: 86 yrs Ethnicity: [place] Weight: 165 lb * Ordering Physician: BRIE HUTCHISON PA-C * Performed By: Yahaira Sapp RCS * * Reason For Study: CEREBRAL ISCHEMIA / EMBOLUS * BSA: 1.9 m2 * -- Conclusions -- * The study was technically difficult. * The left ventricle is normal in size. * Left ventricular systolic function is normal. * Ejection Fraction = 60-65%. * The left ventricular wall motion is normal. * There is moderate concentric left ventricular hypertrophy. * Grade I diastolic dysfunction, (abnormal relaxation pattern). * The left atrium is mildly dilated. * There is mild tricuspid regurgitation. * Right ventricular systolic pressure is normal. Procedure Details * A complete two-dimensional transthoracic echocardiogram was performed (2D, M-mode, Doppler and color flow Doppler). * The study was technically difficult. Left Ventricle * The left ventricle is normal in size. * There is moderate concentric left ventricular hypertrophy. * Left ventricular systolic function is normal. * Ejection Fraction = 60-65%. * The left ventricular wall motion is normal. Right Ventricle * The right ventricle is normal in size and function. * There is mild right ventricular hypertrophy. Atria * The left atrium is mildly dilated. * The right atrium is mildly dilated. Mitral Valve * The mitral valve is normal in structure and function. * Significant mitral regurgitation is absent. Tricuspid Valve * The tricuspid valve is normal in structure and function. * There is mild tricuspid regurgitation. * Right ventricular systolic pressure is normal. Aortic Valve * The aortic valve is normal in structure and function. * There is no significant aortic regurgitation. Pulmonic Valve * The pulmonic valve is not well seen, but is grossly normal. * There is no significant pulmonary regurgitation. Great Vessels * Mild aortic root dilatation. * Aortic arch of normal dimension. * No obvious dissection could be visualized. * The pulmonary artery is not well visualized, but is probably normal size. Pericardium/Pleural * There is no pericardial effusion. Great Vessels * Normal inferior vena cava diameter and respiratory variation suggests normal central venous pressure. Left Ventricular Diastolic Function * Grade I diastolic dysfunction, (abnormal relaxation pattern). MMode 2D Measurements and Calculations IVSd 1.2 cm IVSs 1.7 cm LVIDd 4.7 cm LVIDs 3.5 cm LVPWd 0.86 cm LVPWs 1.7 cm IVS/LVPW 1.4 FS 25.5 % EDV(Teich) 102.8 ml ESV(Teich) 51.1 ml EF(Teich) 50.3 % EDV(cubed) 104.4 ml ESV(cubed) 43.1 ml EF(cubed) 58.7 % % IVS thick 45.7 % % LVPW thick 101.8 % LV mass(C)d 168.3 grams LV mass(C)dI 90.3 grams/m\S\2 LV mass(C)s 243.6 grams LV mass(C)sI 130.7 grams/m\S\2 SV(Teich) 51.7 ml SI(Teich) 27.7 ml/m\S\2 SV(cubed) 61.2 ml SI(cubed) 32.9 ml/m\S\2 Ao root diam 3.6 cm Ao root area 10.3 cm\S\2 LA dimension 2.7 cm LA/Ao 0.73 LVOT diam 2.0 cm LVOT area 3.1 cm\S\2 LVAd ap4 24.7 cm\S\2 LVLd ap4 6.8 cm EDV(MOD-sp4) 72.8 ml EDV(sp4-el) 75.5 ml LVAs ap4 13.5 cm\S\2 LVLs ap4 5.8 cm ESV(MOD-sp4) 31.8 ml ESV(sp4-el) 27.0 ml EF(MOD-sp4) 56.3 % EF(sp4-el) 64.2 % LVAd ap2 17.4 cm\S\2 LVLd ap2 5.5 cm EDV(MOD-sp2) 45.9 ml EDV(sp2-el) 46.3 ml LVAs ap2 11.2 cm\S\2 LVLs ap2 4.6 cm ESV(MOD-sp2) 23.1 ml ESV(sp2-el) 23.1 ml EF(MOD-sp2) 49.7 % EF(sp2-el) 50.1 % LVLd %diff -24.14 % EDV(MOD-bp) 64.3 ml LVLs %diff -25.41 % ESV(MOD-bp) 26.6 ml EF(MOD-bp) 58.6 % SV(MOD-sp4) 41.0 ml SI(MOD-sp4) 22.0 ml/m\S\2 SV(MOD-sp2) 22.9 ml SI(MOD-sp2) 12.3 ml/m\S\2 SV(MOD-bp) 37.6 ml SI(MOD-bp) 20.2 ml/m\S\2 SV(sp4-el) 48.4 ml SI(sp4-el) 26.0 ml/m\S\2 SV(sp2-el) 23.2 ml SI(sp2-el) 12.4 ml/m\S\2 Doppler Measurements and Calculations MV E max luiz 82.9 cm/sec MV A max luiz 93.6 cm/sec MV E/A 0.89 MV P1/2t max luiz 86.9 cm/sec MV P1/2t 84.8 msec MVA(P1/2t) 2.6 cm\S\2 MV dec slope 300.2 cm/sec\S\2 MV dec time 0.27 sec Ao V2 max 121.6 cm/sec Ao max PG 5.9 mmHg Ao max PG (full) 1.7 mmHg ALDO(V,A) 2.6 cm\S\2 ALDO(V,D) 2.6 cm\S\2 LV V1 max PG 4.2 mmHg LV V1 max 102.8 cm/sec TR max luiz 267.1 cm/sec
[2016-06-13] MEDS ORDERED: DILT120T8 PO (14:06)
[2016-06-13] MEDS ORDERED: CLOP1TAB5 PO (14:06)
--- NOTE | 2016-06-13 15:43 | Pharmacy Progress Note ---
Pharmacist Stroke Counseling Date of Service Jun 13, 2016. Scope Pharmacy has been consulted to provide medication discharge counseling for this patient admitted with transient ischemic attack as per the Pharmacist Discharge Counseling for Stroke Patients Protocol. Medications on Discharge New Medications: Clopidogrel Bisulfate (Plavix) 75 Mg Tab 1 TAB PO DAILY for 30 Days, #30 TAB 1 Refill Continued Medications: Diltiazem Hcl (Cardizem) 120 Mg Tab 120 MG PO DAILY for 30 Days, #30 DOSE (This prescription has been renewed) Fluticasone Propionate Hfa (Flovent Hfa 110MCG Inhaler) 110 Mcg/ Aer 1 PUFF INH BID, INH Discontinued Medications: Aspirin (Aspirin Ec) 81 Mg Tab 81 DAILY Action The above medications, specifically ones for stroke treatment/prophylaxis, have been reviewed in detail with the patient and/or patient kiosk sales representative(s) prior to discharge. This includes indication, common adverse reactions, drug interactions, and medication administration. Medication counseling has been employed using the teach-back method to ensure understanding. Outcome The patient and/or patient kiosk sales representative(s) have demonstrated understanding of the medications. Please note, they are aware that the pharmacist will call them within 72 hours post-discharge to confirm that the appropriate medications are being taken and answer any further medication related questions the patient might have at that time. Contact information Individual to be contacted: patient Relationship to patient (if applicable): N/A Phone number: [phone] Best time to call: anytime Additional comments: Patient was very sweet and understanding. She understood to stop baby aspirin and start Plavix (had been on previously many years ago- only problem was bruising). I told her to monitor for unusual bleeding. She does not have GI issues. She does get confused a little so please ensure on follow-up call that patient understands directions. Does not take a statin because had horrible reaction (could barely walk) after taking Lipitor. Does not want to take again. Please call Saturday. Thank you for allowing pharmacy to be involved in the care of this patient. Please call [phone] or [phone] with any additional questions
[2016-06-14] MEDS ORDERED: CEPH500C PO (08:52)
[2016-06-14] MEDS ORDERED: LACTCHW3 PO (08:52)
--- NOTE | 2016-06-14 22:39 | Progress Note ---
Progress Note Date of Service Jun 14, 2016. Progress Note Late entry: time - 2230 Phone call placed to patient's daughter, Tatianna, this AM. Informed her of patient's urine culture result and told her that keflex BID would be faxed to [facility] to treat the UTI. 7-day course of keflex 500s was faxed this AM. Pt's daughter voiced understanding. urine cx showed granda-sensitive klebsiella Mynor GORDON MD
--- NOTE | 2016-06-18 14:06 | Pharmacy Progress Note ---
Pharmacist Post D/C Phone Note Date of phone call: Jun 18, 2016. Individual with whom pharmacist spoke to: patient The following questions were reviewed during the phone call with responses listed below each: Can you tell me the medications that you are currently taking as well as when and how you take each medication? - Keflex x 7 days, NOT taking aspirin --> taking Plavix 75 mg PO daily (with 6 pm medications), Cardizem 120 mg PO daily, and Flovent inhaler once daily at night When have you missed any doses of your medications? - no What side effects are you having from your medications? - no What questions do you have about your medications? - no What problems are you having obtaining your medications? - no When is your next appointment with your primary care doctor? - today --> no changes Additional comments: - questioned purpose of Lactinex. As per the Pharmacist Discharge Counseling for Stroke Patients Protocol, this phone call has been completed within 72 hours of discharge. Thank you for allowing us to be involved in the care of this patient.
--- NOTE | 2016-07-02 12:27 | CODING QUERY MEDICAL NECESSITY ---
CQSUPPORTING DIAGNOSIS NEEDED A supporting diagnosis is required for the test/procedure performed on this patient in order for us to be reimbursed by the patient's insurance. Please provide a supporting diagnosis for the following test/procedure listed below next to the test name along with your signature. *If there is no additional diagnosis for this patient that would support the following test/procedure please document that below next to the test/procedure. Test(s)/Procedure(s) that require a supporting diagnosis: DOS 06/12/16 CONTROLLED SUBSTANCE GLYCATED HEMOGLOBIN TEST THIS WAS OBSERVATION TAKEN CARE OF BY AIDAN SORIANO Provider Signature: Date: Thank you Janet Zambrano Health Information Management Once completed, please kindly fax back to [phone] For questions please call [phone]
== END 2016-06-13 16:30 | disposition home health service (06) ==
LOC: ENRESERVDT → ENRESERVTM → C.EDB 14:57 → C.2T 18:00
PROVIDERS: ADMIT Hospitalist; ATTEND Internal Medicine
DX: G45.9 Transient cerebral ischemic attack, unspecified (principal); I25.10 Atherosclerotic heart disease of native coronary artery without angina pectoris; N39.0 Urinary tract infection, site not specified; E78.5 Hyperlipidemia, unspecified; J45.909 Unspecified asthma, uncomplicated; I25.2 Old myocardial infarction; Z95.1 Presence of aortocoronary bypass graft; Z79.82 Long term (current) use of aspirin; Z85.3 Personal history of malignant neoplasm of breast; Z79.899 Other long term (current) drug therapy

== ENCOUNTER 2017-06-28 14:17 | Inpatient (IN) | payer OTHER, BC ==
[~2017-06-28] VITALS: Ht 170.2 cm; Wt 69.0 kg
[~2017-06-28 14:17] MED LIST changes: -ASPI81TA28; -CHOL100010 PO; +CLOP1TAB5 PO; -COEN10CA5; +LACTCHW3 PO
[2017-06-28] MEDS ORDERED: SODIUM CHLORIDE 0.9% 1000ML 500 ML IV STA (14:43)
--- NOTE | 2017-06-28 15:22 | DIAGNOSTIC IMAGING REPORT ---
CHEST ONE VIEW PORTABLE CLINICAL HISTORY: EVALUATE ALTERED MENTAL STATUS/WEAKNESS COMPARISON STUDY: Chest radiograph June 12, 2016. FINDINGS: Lung volumes are normal. There is no pneumothorax or pleural effusion. There is no consolidation or evidence for pulmonary edema. Cardiomediastinal silhouette is stable. Appearance of the chest is unchanged. IMPRESSION: No acute cardiopulmonary findings. No change in appearance of the chest. Electronically signed by: Luis E David M.D. 06/28/2017 3:20 PM Dictated Date/Time: 06/28/2017 3:20 PM
[2017-06-28] MEDS ORDERED: DILT180C50 PO (15:23)
[2017-06-28] MEDS ORDERED: PLV75 PO (15:23)
--- NOTE | 2017-06-28 15:23 | DIAGNOSTIC IMAGING REPORT ---
KUB CLINICAL HISTORY: Possible constipation. COMPARISON STUDY: None. FINDINGS: The bowel gas pattern is normal. There is moderate vascular calcification. There is a moderate to large amount stool within the rectum. A moderate amount stool is noted within the colon. IMPRESSION: 1. No evidence for a bowel obstruction. 2. Moderate to large amount of stool within the rectum and moderate amount of stool within the colon. Electronically signed by: Luis E David M.D. 06/28/2017 3:21 PM Dictated Date/Time: 06/28/2017 3:21 PM
[2017-06-28 15:33] LABS: BASO % 1.2 %; BASO ABS # 0.07 K/uL (0-0.2); EOS % 0.5 %; EOS ABS # 0.03 K/uL (0-0.5); HEMATOCRIT 45.5 % (37-47); HEMOGLOBIN 15.4 g/dL (12.0-16.0); IG# 0.01 K/uL (0.00-0.02); LYMPH ABS # 1.38 K/uL (1.2-3.4); MEAN CELL VOLUME 86.8 fL (80-100); MEAN CORPUSCULAR HEMOGLOBIN 29.4 pg (25-34); MEAN CORPUSCULAR HGB CONC 33.8 g/dl (32-36); MONO % 16.7 %; MONO ABS # 0.96 K/uL (0.11-0.59); NEUT % 57.4 %; NEUT ABS # 3.29 K/uL (1.4-6.5); PLATELET COUNT 202 K/uL (130-400); RED CELL DISTRIBUTION WIDTH CV 14.4 % (11.5-14.5); RED CELL DISTRIBUTION WIDTH SD 46.2 fL (36.4-46.3); WHITE BLOOD COUNT 5.74 K/uL (4.8-10.8)
--- NOTE | 2017-06-28 16:06 | EMERGENCY ROOM VISIT NOTE ---
History Report prepared by Mark: Trev Guzman Under the Supervision of: Dr. Xavi Howell M.D. First contact with patient: 14:37 Chief Complaint: URINARY SYMPTOMS Stated Complaint: SEVERE CONSTIPATION, UTI Nursing Triage Summary: triage note: Pt daughter reports that pt has had "a pattern of disorientation that we have experienced with uit's in the past." pt daughter reports concern for dehydration "she has not been eating." daughter reports pt has had episodes of being incontinent. History of Present Illness The patient is an 87 year old female who presents to the Emergency Room with complaints of worsening confusion that the patient's son-in-law states has been ongoing for "several days." The patient is currently incontinent of her bladder and has been stuck in bed for the past few days. She denies any fevers, vomiting , or chest/abdominal pain. The patient does have a history of frequent UTIs. The daughter and son noted that the patient has been becoming increasingly disoriented as well. Source of History: patient, family Onset: "several days" Position: other (Genitourinary) Quality: other (Disorientation, incontinence) Timing: worsening Associated Symptoms: No chest pain, No abdominal pain Review of Systems See HPI for pertinent positives & negatives. A total of 10 systems reviewed and were otherwise negative. Past Medical & Surgical Medical Problems: (1) Altered mental status (2) Asthma (3) Breast cancer (4) Cardiac stent (5) Hyperlipidemia (6) Osteopenia (7) TIA (transient ischemic attack) Family History Cancer Social History Smoking Status: Never Smoker Alcohol Use: occasionally Marital Status: Occupation Status: retired Current/Historical Medications Scheduled Clopidogrel Bisulfate (Clopidogrel), 1 TAB PO DAILY Diltiazem Hcl Coated Beads (Cartia Xt), 1 CAP PO DAILY Allergies Coded Allergies: Atorvastatin (Unverified Adverse Reaction, Unknown, ., 06/28/17) Niacin (Unverified Adverse Reaction, Unknown, SHORTNESS OF BREATH, 06/28/17 ) Physical Exam Vital Signs Date Time Temp Pulse Resp B/P (MAP) Pulse Ox O2 Delivery O2 Flow Rate FiO2 06/28/17 17:45 75 20 147/83 95 Room Air 06/28/17 15:47 76 20 156/92 95 Room Air 06/28/17 15:46 96 06/28/17 14:24 36.7 83 18 151/89 95 Room Air Physical Exam GENERAL: Patient is in no acute distress. Smells strongly of urine. HEENT: No acute trauma, normocephalic atraumatic, mucous membranes moist, no nasal congestion, no scleral icterus. NECK: No stridor, no adenopathy, no meningismus, trachea is midline. LUNGS: Clear to auscultation bilaterally, no wheeze, no rhonchi, breath sounds equal. HEART: Without murmurs gallops or rubs, regular rate and rhythm. ABDOMEN: Soft, nontender, bowel sounds positive, no hernias, no peritonitis. EXTREMITIES: No cyanosis or edema, full range of motion of all the joints without pain or difficulty, no signs for acute trauma. SKIN: No rash, no jaundice, no diaphoresis. NEURO: Some confusion noted, poor historian, patient is awake/alert, no pronator drift. No focal deficits. Medical Decision & Procedures ER Provider Diagnostic Interpretation: Radiology results as stated below per my review and radiologist interpretation: CHEST ONE VIEW PORTABLE CLINICAL HISTORY: EVALUATE ALTERED MENTAL STATUS/WEAKNESS COMPARISON STUDY: Chest radiograph June 12, 2016. FINDINGS: Lung volumes are normal. There is no pneumothorax or pleural effusion. There is no consolidation or evidence for pulmonary edema. Cardiomediastinal silhouette is stable. Appearance of the chest is unchanged. IMPRESSION: No acute cardiopulmonary findings. No change in appearance of the chest. Electronically signed by: Luis E David M.D. 06/28/2017 3:20 PM Dictated Date/Time: 06/28/2017 3:20 PM KUB CLINICAL HISTORY: Possible constipation. COMPARISON STUDY: None. FINDINGS: The bowel gas pattern is normal. There is moderate vascular calcification. There is a moderate to large amount stool within the rectum. A moderate amount stool is noted within the colon. IMPRESSION: 1. No evidence for a bowel obstruction. 2. Moderate to large amount of stool within the rectum and moderate amount of stool within the colon. Electronically signed by: Luis E David M.D. 06/28/2017 3:21 PM Dictated Date/Time: 06/28/2017 3:21 PM Laboratory Results 06/28/17 15:15 Red Blood Count 5.24, Mean Corpuscular Volume 86.8, Mean Corpuscular Hemoglobin 29.4, Mean Corpuscular Hemoglobin Concent 33.8, Mean Platelet Volume 11.0, Neutrophils (%) (Auto) 57.4, Lymphocytes (%) (Auto) 24.0, Monocytes (%) (Auto) 16.7, Eosinophils (%) (Auto) 0.5, Basophils (%) (Auto) 1.2, Neutrophils # (Auto ) 3.29, Lymphocytes # (Auto) 1.38, Monocytes # (Auto) 0.96, Eosinophils # (Auto ) 0.03, Basophils # (Auto) 0.07 06/28/17 15:15 Test 06/28/17 15:15 06/28/17 15:45 White Blood Count 5.74 K/uL (4.8-10.8) Red Blood Count 5.24 M/uL (4.2-5.4) Hemoglobin 15.4 g/dL (12.0-16.0) Hematocrit 45.5 % (37-47) Mean Corpuscular Volume 86.8 fL (80-100) Mean Corpuscular Hemoglobin 29.4 pg (25-34) Mean Corpuscular Hemoglobin Concent 33.8 g/dl (32-36) Platelet Count 202 K/uL (130-400) Mean Platelet Volume 11.0 fL (7.4-10.4) Neutrophils (%) (Auto) 57.4 % Lymphocytes (%) (Auto) 24.0 % Monocytes (%) (Auto) 16.7 % Eosinophils (%) (Auto) 0.5 % Basophils (%) (Auto) 1.2 % Neutrophils # (Auto) 3.29 K/uL (1.4-6.5) Lymphocytes # (Auto) 1.38 K/uL (1.2-3.4) Monocytes # (Auto) 0.96 K/uL (0.11-0.59) Eosinophils # (Auto) 0.03 K/uL (0-0.5) Basophils # (Auto) 0.07 K/uL (0-0.2) RDW Standard Deviation 46.2 fL (36.4-46.3) RDW Coefficient of Variation 14.4 % (11.5-14.5) Immature Granulocyte % (Auto) 0.2 % Immature Granulocyte # (Auto) 0.01 K/uL (0.00-0.02) Anion Gap 9.0 mmol/L (3-11) Est Creatinine Clear Calc Drug Dose 57.5 ml/min Estimated GFR () 91.6 Estimated GFR (Non- 79.0 BUN/Creatinine Ratio 14.2 (10-20) Calcium Level 8.8 mg/dl (8.5-10.1) Total Bilirubin 1.1 mg/dl (0.2-1) Aspartate Amino Transf (AST/SGOT) 14 U/L (15-37) Alanine Aminotransferase (ALT/SGPT) 12 U/L (12-78) Alkaline Phosphatase 83 U/L (45-117) Troponin I < 0.015 ng/ml (0-0.045) Total Protein 7.2 gm/dl (6.4-8.2) Albumin 3.3 gm/dl (3.4-5.0) Globulin 3.9 gm/dl (2.5-4.0) Albumin/Globulin Ratio 0.8 (0.9-2) Thyroid Stimulating Hormone (TSH) 4.960 uIu/ml (0.300-4.500) Chemistry Specimen Hemolysis Urine Color YELLOW Urine Appearance TURBID (CLEAR) Urine pH 6.5 (4.5-7.5) Urine Specific [place] 1.005 (1.000-1.030) Urine Protein NEG (NEG) Urine Glucose (UA) NEG (NEG) Urine Ketones TRACE (NEG) Urine Occult Blood 1+ (NEG) Urine Nitrite NEG (NEG) Urine Bilirubin NEG (NEG) Urine Urobilinogen NEG (NEG) Urine Leukocyte Esterase LARGE (NEG) Urine WBC (Auto) >30 /hpf (0-5) Urine RBC (Auto) 0-4 /hpf (0-4) Urine Hyaline Casts (Auto) 1-5 /lpf (0-5) Urine Epithelial Cells (Auto) >30 /lpf (0-5) Urine Bacteria (Auto) 4+ (NEG) Laboratory results reviewed by me. Medications Administered Medications (Trade) Dose Ordered Sig/Luarita Route Start Time Stop Time Status Last Admin Dose Admin Sodium Chloride 500 ml @ 999 mls/hr Q31M STAT IV 06/28/17 14:43 06/28/17 15:13 DC 06/28/17 16:01 999 MLS/HR Ceftriaxone Sodium (Rocephin Inj) 1 gm NOW STAT IV 06/28/17 16:21 06/28/17 16:22 DC 06/28/17 16:46 1 GM ECG Per My Interpretation Indication: altered mental status Rate (beats per minute): 79 Rhythm: normal sinus Findings: other (LVH, possible old lateral infarct, no ST-elevation, no PVCs) ED Course 1438: The patient was evaluated in room B5. A complete history and physical exam was performed. 1443: Ordered Sodium Chloride 500 mL @ 999 mL/hr IV. 1621: Ordered Rocephin 1 gm IV. 165: I updated the patient and her family at this time. They are in agreement with inpatient treatment. 170: I discussed the case with Dr. Reyna JENSEN Hospitalist. She will evaluate the patient for further treatment. Medical Decision Differential Diagnosis includes; UTI, stroke, intracranial bleed, dehydration, electrolyte imbalance, anaemia, cardiac ischemia, and thyroid disorder There is no leukocytosis or concerning anemia. No significant electrolyte abnormality, kidney failure, hepatitis. TSH is mildly elevated but not of true significance. Brain CT shows no acute bleed or mass-effect. EKG shows a sinus rhythm, no acute ischemia. Cardiac enzyme testing 1 does not suggest acute cardiac injury. Urinalysis is consistent with infection. Urine culture is pending. Chest x-ray does not show pneumonia. KUB does show some constipation , no bowel obstruction. On exam, the patient had no focal neurologic deficits, she was not toxic or febrile. Patient received IV saline, IV ceftriaxone. Given the change in mental status, given her weakness and the diagnosis of UTI, I do think a hospital stay is warranted. I spoke to the patient and case management. I discussed the case with the on-call hospitalist. Medication Reconcilliation Current Medication List: was personally reviewed by me Blood Pressure Screening Patient's blood pressure: Elevated blood pressure Referred to Hospitalist Consults Time Called: 1650 Consulting Physician: Dr. Reyna JENSEN Hospitalist. Returned Call: 1702 I discussed the case with Dr. Reyna JENSEN Hospitalist. She will evaluate the patient for further treatment. Impression Primary Impression: Change in mental status Additional Impression: UTI (urinary tract infection) Scribe Attestation The scribe's documentation has been prepared under my direction and personally reviewed by me in its entirety. I confirm that the note above accurately reflects all work, treatment, procedures, and medical decision making performed by me. Departure Information Dispostion Being Evaluated By Hospitalist Referrals No Doctor, Assigned (PCP) Patient Instructions My [facility] Problem Qualifiers
[2017-06-28 16:16] LABS: ALBUMIN 3.3 gm/dl (3.4-5.0); ALKALINE PHOSPHATASE 83 U/L (45-117); ALT/SGPT 12 U/L (12-78); AST/SGOT 14 U/L (15-37); BLOOD UREA NITROGEN 9 mg/dl (7-18); CALCIUM 8.8 mg/dl (8.5-10.1); CARBON DIOXIDE 25 mmol/L (21-32); CREATININE 0.67 mg/dl (0.60-1.20); GLUCOSE 90 mg/dl (70-99); POTASSIUM 3.3 mmol/L (3.5-5.1); SODIUM 136 mmol/L (136-145); TOTAL PROTEIN 7.2 gm/dl (6.4-8.2)
[2017-06-28] MEDS ORDERED: CEFTRIAXONE SOD INJ 1 GM ADDVIAL IV STA (16:21)
--- NOTE | 2017-06-28 16:40 | DIAGNOSTIC IMAGING REPORT ---
HEAD WITHOUT CONTRAST (CT) CT DOSE: 638.56 mGycm HISTORY: Mental status change EVALUATE ALTERED MENTAL STATUS/WEAKNESS TECHNIQUE: Multiaxial CT images of the head were performed without the use of intravenous contrast. A dose lowering technique was utilized adhering to the principles of ALARA. Comparison: 06/12/2016 Findings: The paranasal sinuses and mastoid air cells are clear. The calvarium and skull base are intact. The ventricles and sulci are within normal limits. There is no mass, hematoma, midline shift, or acute infarct. Mild chronic small vessel change unremarkable for age Impression: No acute intracranial abnormality. Age-related change The above report was generated using voice recognition software. It may contain grammatical, syntax or spelling errors. Electronically signed by: Melo Buckley M.D. 06/28/2017 4:39 PM Dictated Date/Time: 06/28/2017 4:37 PM
[2017-06-28] MEDS ORDERED: ACETAMINOPHEN 325 MG TAB PO PRN (18:30)
[2017-06-28] MEDS ORDERED: ONDANSETRON INJ 2 MG/ML 2 ML VIAL IV PRN (18:30)
--- NOTE | 2017-06-28 18:47 | History and Physical ---
History & Physical Date & Time of Service: Jun 28, 2017 at 18:33 Chief Complaint: Severe Constipation, Uti Primary Care Physician: Grayson Palacios M.D. History of Present Illness Source: patient, family 87 y/o F who was brought to the ED due to concerns from her family regarding AMS. Pt lives in independent living and generally does well in this setting. She has been c/o feeling unwell during the course of the week. Daughter states that she has not wanted to get out of bed the last two days, and this is uncharacteristic for her. They went to see her and noted that her bed was soaked to the mattress. Pt does have incontinence at baseline, but mostly with coughing or laughing. She does not generally wet her bed though. They are uncertain if she has been eating, but do know that she has not gone down to the [place] the last two nights. Pt states she has been eating, but it is uncertain if she is a good historian at this point. Pt denies fever, SOB, chest pain, abd pain, n/v/c/d, LE pain or swelling. Family relates that she had AMS with a UTI in the past, although it was more progressed and she had L UE numbness. She had been acting out of character for far longer prior to dx at that time, however. Past Medical/Surgical History Medical Problems: (1) Altered mental status (2) Asthma (3) Asthma with exacerbation (4) Breast cancer (5) Cardiac stent (6) Exacerbation of asthma (7) Hyperlipidemia (8) Left sided numbness (9) Osteopenia (10) Palpitations (11) Premature atrial complexes (12) TIA (transient ischemic attack) (13) UTI (urinary tract infection) Family History Family history was reviewed; no changes noted. Social History Smoking Status: Never Smoker Alcohol Use: none Drug Use: none Marital Status: Occupational Status: retired Immunizations History of Influenza Vaccine: Yes History of Tetanus Vaccine?: Yes History of Pneumococcal: Yes History of Hepatitis B Vaccine: No Allergies Coded Allergies: Atorvastatin (Unverified Adverse Reaction, Unknown, ., 06/28/17) Niacin (Unverified Adverse Reaction, Unknown, SHORTNESS OF BREATH, 06/28/17 ) Home Medications Scheduled Clopidogrel Bisulfate (Clopidogrel), 1 TAB PO DAILY Diltiazem Hcl Coated Beads (Cartia Xt), 1 CAP PO DAILY Review of Systems Pertinent positives and negatives reviewed in HPI--all others negative Physical Exam Vital Signs Date Time Temp Pulse Resp B/P (MAP) Pulse Ox O2 Delivery O2 Flow Rate FiO2 06/28/17 17:45 75 20 147/83 95 Room Air 06/28/17 15:47 76 20 156/92 95 Room Air 06/28/17 15:46 96 06/28/17 14:24 36.7 83 18 151/89 95 Room Air General Appearance: WD/WN, no apparent distress Head: normocephalic, atraumatic Eyes: normal inspection, sclerae normal Respiratory/Chest: normal breath sounds, no respiratory distress Cardiovascular: regular rate, rhythm, no edema Abdomen/GI: non tender, soft Extremities/Musculoskelatal: no calf tenderness, no pedal edema Neurologic/Psych: alert, + pertinent finding (knows she is at [facility], initially answer 1977 for date but corrected to 2017, thought it was May. Follows all commands, no slurred speech, moving all extremities) Skin: normal color, warm/dry Diagnostics Laboratory Results Results Past 24 Hours Test 06/28/17 15:15 06/28/17 15:45 Range/Units White Blood Count 5.74 4.8-10.8 K/uL Red Blood Count 5.24 4.2-5.4 M/uL Hemoglobin 15.4 12.0-16.0 g/dL Hematocrit 45.5 37-47 % Mean Corpuscular Volume 86.8 80-100 fL Mean Corpuscular Hemoglobin 29.4 25-34 pg Mean Corpuscular Hemoglobin Concent 33.8 32-36 g/dl Platelet Count 202 130-400 K/uL Mean Platelet Volume 11.0 7.4-10.4 fL Neutrophils (%) (Auto) 57.4 % Lymphocytes (%) (Auto) 24.0 % Monocytes (%) (Auto) 16.7 % Eosinophils (%) (Auto) 0.5 % Basophils (%) (Auto) 1.2 % Neutrophils # (Auto) 3.29 1.4-6.5 K/uL Lymphocytes # (Auto) 1.38 1.2-3.4 K/uL Monocytes # (Auto) 0.96 0.11-0.59 K/uL Eosinophils # (Auto) 0.03 0-0.5 K/uL Basophils # (Auto) 0.07 0-0.2 K/uL RDW Standard Deviation 46.2 36.4-46.3 fL RDW Coefficient of Variation 14.4 11.5-14.5 % Immature Granulocyte % (Auto) 0.2 % Immature Granulocyte # (Auto) 0.01 0.00-0.02 K/uL Sodium Level 136 136-145 mmol/L Potassium Level 3.3 3.5-5.1 mmol/L Chloride Level 102 98-107 mmol/L Carbon Dioxide Level 25 21-32 mmol/L Anion Gap 9.0 3-11 mmol/L Blood Urea Nitrogen 9 7-18 mg/dl Creatinine 0.67 0.60-1.20 mg/dl Est Creatinine Clear Calc Drug Dose 57.5 ml/min Estimated GFR () 91.6 Estimated GFR (Non- 79.0 BUN/Creatinine Ratio 14.2 10-20 Random Glucose 90 70-99 mg/dl Calcium Level 8.8 8.5-10.1 mg/dl Total Bilirubin 1.1 0.2-1 mg/dl Aspartate Amino Transf (AST/SGOT) 14 15-37 U/L Alanine Aminotransferase (ALT/SGPT) 12 12-78 U/L Alkaline Phosphatase 83 45-117 U/L Troponin I < 0.015 0-0.045 ng/ml Total Protein 7.2 6.4-8.2 gm/dl Albumin 3.3 3.4-5.0 gm/dl Globulin 3.9 2.5-4.0 gm/dl Albumin/Globulin Ratio 0.8 0.9-2 Thyroid Stimulating Hormone (TSH) 4.960 0.300-4.500 uIu/ml Chemistry Specimen Hemolysis Urine Color YELLOW Urine Appearance TURBID CLEAR Urine pH 6.5 4.5-7.5 Urine Specific [place] 1.005 1.000-1.030 Urine Protein NEG NEG Urine Glucose (UA) NEG NEG Urine Ketones TRACE NEG Urine Occult Blood 1+ NEG Urine Nitrite NEG NEG Urine Bilirubin NEG NEG Urine Urobilinogen NEG NEG Urine Leukocyte Esterase LARGE NEG Urine WBC (Auto) >30 0-5 /hpf Urine RBC (Auto) 0-4 0-4 /hpf Urine Hyaline Casts (Auto) 1-5 0-5 /lpf Urine Epithelial Cells (Auto) >30 0-5 /lpf Urine Bacteria (Auto) 4+ NEG Microbiology Results 06/28/17 Urine Culture, Received Pending Diagnostic Radiology CXR neg for acute CT head neg for acute KUB: mod to large amount of stool in rectum/colon Impression Assessment and Plan 87 y/o F who was admitted on 06/28 for AMS AMS: likely metabolic encephalopathy due to UTI Ceftriaxone, IVF Urine cx pending WBC WNL, afebrile, VSS Trop neg TSH with slight elevation, but likely related to acute illness and should be rechecked in 4 weeks Constipation: pt denies constipation or hx of/use of medications for this MOM until bowel movement given KUB TIA/CABG: plavix HTN: continue home meds CM c/s: pt lives in Independent Living. Family has concerns that she is not taking her meds regularly. PT/OT pending Resuscitation Status VTE Prophylaxis Will order VTE Prophylaxis: Yes
[2017-06-28 20:45] VITALS: BP 130/79; PULSE 84; TEMP 36.5; O2SAT 98; Ht 170.2 cm; Wt 69.0 kg
[2017-06-28] MEDS ORDERED: MAGNESIUM HYDROXIDE SUSP 30 ML UDC PO ONE (21:00)
[2017-06-28] MEDS: SODIUM CHLORIDE 0.9% 1000ML 1,000 ML IV SCH (21:09)
[2017-06-29 07:38] VITALS: BP 150/89; PULSE 94; TEMP 36.8; O2SAT 94
[2017-06-29] MEDS: DILTIAZEM HCL 180 MG CAPCR PO SCH (08:22)
[2017-06-29] MEDS: CLOPIDOGREL BISULFATE 75 MG TAB PO SCH (08:23)
[2017-06-29] MEDS: MAGNESIUM HYDROXIDE SUSP 30 ML UDC PO SCH (08:23)
[2017-06-29 08:57] VITALS: O2SAT 94
[2017-06-29] MEDS: SODIUM CHLORIDE 0.9% 1000ML 1,000 ML IV SCH ×2 (09:10→22:01)
--- NOTE | 2017-06-29 11:26 | Family Medicine Progress Note ---
Progress Note Date of Service Jun 29, 2017. Subjective Pt evaluation today including: conversation w/ patient, physical exam, chart review, lab review Pain: patient reports no pain today PO Intake: tolerating well Voiding: no voiding problems Patient is disoriented but states she would like to go home, and says she feels great. She was unaware she was being given medicine for a urinary infection. Constitutional: No fever, No chills Respiratory: No cough Cardiovascular: No chest pain Abdomen: No pain, No nausea, No vomiting Female : + incontinence All Other Systems: Reviewed and Negative Medications Current Inpatient Medications Medications (Trade) Dose Ordered Sig/Laurita Route Start Time Stop Time Status Last Admin Dose Admin Acetaminophen (Tylenol Tab) 650 mg Q4H PRN PO 06/28/17 18:30 07/28/17 18:29 Magnesium Hydroxide (Milk Of Magnesia Susp) 30 ml DAILY PO 06/29/17 08:00 07/29/17 08:59 06/29/17 08:23 30 ML Ondansetron HCl (Zofran Inj) 4 mg Q6H PRN IV 06/28/17 18:30 07/28/17 18:29 Clopidogrel Bisulfate (plAVix TAB) 75 mg DAILY PO 06/29/17 08:00 07/29/17 08:59 06/29/17 08:23 75 MG Diltiazem HCl (Cardizem Cd Cap) 180 mg DAILY PO 06/29/17 08:00 07/29/17 08:59 06/29/17 08:22 180 MG Sodium Chloride 1,000 ml @ 80 mls/hr [id number] IV 06/28/17 18:30 07/28/17 18:29 06/29/17 09:10 80 MLS/HR Ceftriaxone Sodium 1 gm/ Dextrose 50 ml @ 100 mls/hr Q24H IV 06/29/17 16:00 07/08/17 15:59 Influenza Virus Vaccine (Fluzone High-Dose Pf) 0.5 ml ONCE ONCE IM. 06/30/17 09:00 06/30/17 09:01 Objective Vital Signs Date Time Temp Pulse Resp B/P (MAP) Pulse Ox O2 Delivery O2 Flow Rate FiO2 06/29/17 08:57 94 Room Air 06/29/17 07:38 36.8 94 18 150/89 (109) 94 Room Air 06/29/17 00:00 Room Air 06/28/17 20:45 36.5 84 18 130/79 98 Room Air 06/28/17 19:45 82 18 113/65 92 Room Air 06/28/17 17:45 75 20 147/83 95 Room Air 06/28/17 15:47 76 20 156/92 95 Room Air 06/28/17 15:46 96 06/28/17 14:24 36.7 83 18 151/89 95 Room Air Physical Exam General Appearance: WD/WN, no apparent distress Eyes: normal inspection, PERRL, EOMI ENT: hearing grossly normal Neck: no JVD, no carotid bruits, trachea midline Respiratory/Chest: chest non-tender, lungs clear, normal breath sounds, no respiratory distress, no accessory muscle use Cardiovascular: regular rate, rhythm, no edema, no murmur Abdomen: normal bowel sounds, non tender, soft Extremities: non-tender, normal inspection, no pedal edema, no calf tenderness Neurologic/Psychiatric: no motor/sensory deficits, alert, normal mood/affect, + disoriented (oriented to self but listing her maiden last name) Skin: normal color, warm/dry, no rash Laboratory Results Last Resulted 06/28/17 15:15 Red Blood Count 5.24, Mean Corpuscular Volume 86.8, Mean Corpuscular Hemoglobin 29.4, Mean Corpuscular Hemoglobin Concent 33.8, Mean Platelet Volume 11.0, Neutrophils (%) (Auto) 57.4, Lymphocytes (%) (Auto) 24.0, Monocytes (%) (Auto) 16.7, Eosinophils (%) (Auto) 0.5, Basophils (%) (Auto) 1.2, Neutrophils # (Auto ) 3.29, Lymphocytes # (Auto) 1.38, Monocytes # (Auto) 0.96, Eosinophils # (Auto ) 0.03, Basophils # (Auto) 0.07 Last Resulted 06/28/17 15:15 Past 24 Hours Test 06/28/17 15:15 Range/Units Troponin I < 0.015 0-0.045 ng/ml Assessment and Plan 87 y/o F who was admitted on 06/28 for AMS AMS: likely metabolic encephalopathy due to UTI Continue ceftriaxone, day 2, IVF Urine cx pending WBC WNL, afebrile, VSS Discussion with patient's daughter, who is concerned about independent living and would like her to be moved to [facility] [place] [facility] [place] Reports patient cannot feed/clean herself, soils herself, is inconsistent with taking medications, etc. Hypokalemia K+ 3.3 today, replaced with 40 mg PO Monitor Constipation: Pt denies constipation or hx of/use of medications for this MOM until bowel movement given KUB Has yet to have bowel movement TIA/CABG: continue plavix HTN: continue home meds, cardizem 180 OD PO Slightly elevated TSH likely related to acute illness and should be rechecked in 4 weeks CM c/s: pt lives in Independent Living. Family has concerns that she is not taking her meds regularly and other issues above. PT/OT pending Code: DNR DVTP: SCDs/heparin Dispo: med/surg; awaiting placement Resident Tracking Resident Involvement: Resident Care Provided Care Provided: Adult Hospital Medicine Reviewed: Pt Seen/Exam by Me History sitting in the chair comfortably Constitutional: denies: fever Respiratory: negative: short of breath Cardiovascular: denies chest pain General Appearance: no apparent distress Respiratory: lungs clear, no respiratory distress Cardiovascular: regular rate, rhythm Neurologic/Psychiatric: alert, other (oriented to place and person) Skin Characteristics: warm/dry Assessment/Plan Resident Physician Supervision Note: I independently interviewed and examined the patient and verified the ortiz history and physical, reviewed labs and image studies, discussed the case with the resident Dr. Handley and agree with the findings and care plan.
[2017-06-29] MEDS ORDERED: POTASSIUM CHLORIDE 20 MEQ TABCR PO STA (11:32)
[2017-06-29 15:49] VITALS: BP 97/58; PULSE 65; TEMP 36.8; O2SAT 94
[2017-06-29] MEDS: CEFTRIAXONE SOD INJ 1 GM in DEXTROSE 5% ADD-VANTAGE 50ML 50 ML IV SCH (16:00)
[2017-06-29 17:31] LABS: HEMATOCRIT 44.7 % (37-47); MEAN CELL VOLUME 88.2 fL (80-100); MEAN CORPUSCULAR HEMOGLOBIN 29.6 pg (25-34); MEAN CORPUSCULAR HGB CONC 33.6 g/dl (32-36); MEAN PLATELET VOLUME 11.4 fL (7.4-10.4); NUCLEATED RED BLOOD CELL ABS 0.02 K/uL (0-0); PLATELET COUNT 195 K/uL (130-400); RED CELL DISTRIBUTION WIDTH CV 14.3 % (11.5-14.5); RED CELL DISTRIBUTION WIDTH SD 46.2 fL (36.4-46.3); WHITE BLOOD COUNT 5.98 K/uL (4.8-10.8)
[2017-06-29 17:39] LABS: INR 1.1 (0.9-1.1); PTT PATIENT 23.7 SECONDS (21.0-31.0)
[2017-06-29] MEDS: HEPARIN SOD 5000 UNIT/0.5 ML CARP SQ SCH (22:07)
[2017-06-30] VITALS: BP 135/80; PULSE 60; TEMP 36.9; O2SAT 93
[2017-06-30 06:48] LABS: CALCIUM 7.9 mg/dl (8.5-10.1); CREATININE 0.45 mg/dl (0.60-1.20); POTASSIUM 3.6 mmol/L (3.5-5.1)
[2017-06-30 07:56] VITALS: BP 136/83; PULSE 57; TEMP 36.5; O2SAT 92
[2017-06-30] MEDS: DILTIAZEM HCL 180 MG CAPCR PO SCH (08:52)
[2017-06-30] MEDS: CLOPIDOGREL BISULFATE 75 MG TAB PO SCH (08:52)
[2017-06-30] MEDS: MAGNESIUM HYDROXIDE SUSP 30 ML UDC PO SCH (08:52)
[2017-06-30] MEDS: SODIUM CHLORIDE 0.9% 1000ML 1,000 ML IV SCH ×2 (08:57→20:29)
[2017-06-30] MEDS: HEPARIN SOD 5000 UNIT/0.5 ML CARP SQ SCH ×2 (08:57→20:29)
[2017-06-30] MEDS ORDERED: INFLUENZA ADMINISTRATION CHARGE ONE (09:00)
[2017-06-30] MEDS ORDERED: INFLUENZA VACCINE HIGH DOSE 65+ 0.5 ML SYR IM. ONE (09:00)
[2017-06-30 15:28] VITALS: BP 144/74; PULSE 59; TEMP 36.3; O2SAT 96
--- NOTE | 2017-06-30 16:13 | Family Medicine Progress Note ---
Progress Note Date of Service Jun 30, 2017. Subjective Pt evaluation today including: conversation w/ patient, physical exam Pain: Denies pain this am PO Intake: Tolerating well Voiding: incontinence (occasional) Pt reports she feels much better today, states she would like to go home. Unsure of where she is/that this is a hospital. Constitutional: No fever, No chills, No sweats, No weight loss, No weakness , No fatigue, No problem reported Respiratory: No cough, No sputum, No wheezing, No shortness of breath, No dyspnea on exertion, No dyspnea at rest, No hemoptysis, No problem reported Cardiovascular: No chest pain, No orthopnea, No PND, No edema, No claudication, No palpitations, No problem reported Abdomen: No pain, No nausea, No vomiting Female : + incontinence, No dysuria Neurologic: + memory loss All Other Systems: Reviewed and Negative Medications Current Inpatient Medications Medications (Trade) Dose Ordered Sig/Laurita Route Start Time Stop Time Status Last Admin Dose Admin Acetaminophen (Tylenol Tab) 650 mg Q4H PRN PO 06/28/17 18:30 07/28/17 18:29 Magnesium Hydroxide (Milk Of Magnesia Susp) 30 ml DAILY PO 06/29/17 08:00 07/29/17 08:59 06/30/17 08:52 30 ML Ondansetron HCl (Zofran Inj) 4 mg Q6H PRN IV 06/28/17 18:30 07/28/17 18:29 Clopidogrel Bisulfate (plAVix TAB) 75 mg DAILY PO 06/29/17 08:00 07/29/17 08:59 06/30/17 08:52 75 MG Diltiazem HCl (Cardizem Cd Cap) 180 mg DAILY PO 06/29/17 08:00 07/29/17 08:59 06/30/17 08:52 180 MG Sodium Chloride 1,000 ml @ 80 mls/hr [id number] IV 06/28/17 18:30 07/28/17 18:29 06/30/17 08:57 80 MLS/HR Ceftriaxone Sodium 1 gm/ Dextrose 50 ml @ 100 mls/hr Q24H IV 06/29/17 16:00 07/08/17 15:59 06/29/17 16:00 100 MLS/HR Heparin Sodium (Porcine) (Heparin Sq 5000 Unit/0.5ml) 5,000 unit Q12 SQ 06/29/17 21:00 07/29/17 20:59 Objective Vital Signs Date Time Temp Pulse Resp B/P (MAP) Pulse Ox O2 Delivery O2 Flow Rate FiO2 06/30/17 15:28 36.3 59 18 144/74 (97) 96 Room Air 06/30/17 07:56 36.5 57 18 136/83 (100) 92 Room Air 06/30/17 00:00 Room Air 06/30/17 00:00 36.9 60 18 135/80 (98) 93 Room Air 06/29/17 20:00 Room Air Physical Exam General Appearance: WD/WN, no apparent distress Eyes: normal inspection, PERRL, EOMI, sclerae normal ENT: hearing grossly normal Neck: no JVD, no carotid bruits, trachea midline Respiratory/Chest: chest non-tender, lungs clear, normal breath sounds, no respiratory distress, no accessory muscle use Cardiovascular: regular rate, rhythm, no edema, no murmur Abdomen: normal bowel sounds, non tender, soft Extremities: normal range of motion, non-tender, normal inspection, no pedal edema, no calf tenderness Neurologic/Psychiatric: no motor/sensory deficits, alert, normal mood/affect, + disoriented (much improved from yesterday oriented to self and time, not place. unaware of how she ended in hospital) Skin: normal color, warm/dry Lymphatic: no adenopathy Laboratory Results Last Resulted 06/29/17 17:17 Last Resulted 06/30/17 05:57 Past 24 Hours Test 06/29/17 17:17 Range/Units Prothromb Time International Ratio 1.1 0.9-1.1 Prothrombin Time 11.1 9.0-12.0 SECONDS Assessment and Plan 87 y/o F who was admitted on 06/28 for AMS AMS: likely metabolic encephalopathy due to UTI Continue ceftriaxone, day 3, IVF Urine cx final for E.coli, pansensitive WBC WNL, afebrile, VSS Discussion with patient's daughter, who is concerned about independent living and would like her to be moved to [facility] Reports patient cannot feed/clean herself, soils herself, is inconsistent with taking medications, etc. Patient clinically much more alert today, and is very resistant to discussion of placement. will follow. PT recommend assisted living Hypokalemia, resolved K+ 3.6 today Monitor Constipation: Pt denies constipation or hx of/use of medications for this MOM until bowel movement given KUB with excessive stool load. TIA/CABG: continue plavix HTN: continue home meds, cardizem 180 OD PO Slightly elevated TSH likely related to acute illness and should be rechecked in 4 weeks as outpatient CM c/s: pt lives in Independent Living. Family has concerns that she is not taking her meds regularly and other issues above. PT/OT ordered, appreciate input Code: DNR DVTP: SCDs/heparin Dispo: med/surg; awaiting placement Resident Tracking Resident Involvement: Resident Care Provided Care Provided: Adult Hospital Medicine Reviewed: Pt Seen/Exam by Me History more alert this morning. Constitutional: denies: fever Respiratory: negative: short of breath Cardiovascular: denies chest pain General Appearance: no apparent distress Respiratory: lungs clear, no respiratory distress Cardiovascular: regular rate, rhythm Neurologic/Psychiatric: alert, oriented x 3 Skin Characteristics: warm/dry Assessment/Plan Resident Physician Supervision Note: I independently interviewed and examined the patient and verified the ortiz history and physical, reviewed labs and image studies, discussed the case with the resident Dr. Handley and agree with the findings and care plan.
[2017-06-30] MEDS: CEFTRIAXONE SOD INJ 1 GM in DEXTROSE 5% ADD-VANTAGE 50ML 50 ML IV SCH (19:29)
[2017-07-01 06:28] LABS: CREATININE 0.41 mg/dl (0.60-1.20); POTASSIUM 3.7 mmol/L (3.5-5.1)
[2017-07-01] MEDS: HEPARIN SOD 5000 UNIT/0.5 ML CARP SQ SCH ×2 (07:36→21:00)
[2017-07-01 08:00] VITALS: O2SAT 94
[2017-07-01] MEDS: MAGNESIUM HYDROXIDE SUSP 30 ML UDC PO SCH (08:00)
[2017-07-01 08:19] VITALS: BP 108/76; PULSE 70; TEMP 36.6
[2017-07-01 08:25] VITALS: O2SAT 95
[2017-07-01] MEDS: DILTIAZEM HCL 180 MG CAPCR PO SCH (08:53)
[2017-07-01] MEDS: CLOPIDOGREL BISULFATE 75 MG TAB PO SCH (08:53)
[2017-07-01] MEDS: SODIUM CHLORIDE 0.9% 1000ML 1,000 ML IV SCH ×2 (08:53→21:44)
[2017-07-01 15:27] VITALS: BP 120/77; PULSE 62; TEMP 36.4; O2SAT 97
[2017-07-01] MEDS: CEFTRIAXONE SOD INJ 1 GM in DEXTROSE 5% ADD-VANTAGE 50ML 50 ML IV SCH (17:49)
--- NOTE | 2017-07-01 18:52 | Progress Note ---
Subjective Date of Service: Jul 01, 2017. Subjective Pt evaluation today including: conversation w/ patient, physical exam, chart review, lab review, review of inpatient medication list feeling better understands need for rehab but doesn't really want to go but accepts and is willing no other new symptoms, generally feeling better appearing still at least mildly confused but appears ipmroved from prior descriptions full HPI and ROS somewhat limited but negative as best can be ascertained Problem List Medical Problems: (1) Change in mental status Status: Acute (2) Left sided numbness Status: Acute (3) UTI (urinary tract infection) Status: Acute (4) UTI (urinary tract infection) Status: Acute Review of Systems ROS otherwise unobtainable except for as above Objective Vital Signs Date Time Temp Pulse Resp B/P (MAP) Pulse Ox O2 Delivery O2 Flow Rate FiO2 07/01/17 15:27 36.4 62 18 120/77 (91) 97 Room Air 07/01/17 09:22 Room Air 07/01/17 08:25 95 Room Air 07/01/17 08:19 36.6 70 16 108/76 (87) 07/01/17 08:00 94 Room Air 07/01/17 00:00 Room Air 06/30/17 20:00 Room Air Physical Exam General Appearance: no apparent distress Eyes: EOMI ENT: hearing grossly normal Neck: trachea midline Respiratory/Chest: no respiratory distress, no accessory muscle use Extremities: normal range of motion 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, alert Skin: normal color, warm/dry Laboratory Results Last 24 Hours Test 07/01/17 05:38 Sodium Level 141 mmol/L Potassium Level 3.7 mmol/L Chloride Level 109 mmol/L Carbon Dioxide Level 25 mmol/L Anion Gap 7.0 mmol/L Blood Urea Nitrogen 10 mg/dl Creatinine 0.41 mg/dl Est Creatinine Clear Calc Drug Dose 94.0 ml/min Estimated GFR () 107.7 Estimated GFR (Non- 92.9 BUN/Creatinine Ratio 24.0 Random Glucose 95 mg/dl Calcium Level 8.0 mg/dl Assessment and Plan 87 y/o F who was admitted on 06/28 for AMS Metabolic encephalopathy due to UTI Continue ceftriaxone - can transition to PO abx at discharge Urine cx final for E.coli, pansensitive appears to be slowly improving WBC WNL, afebrile, VSS Discussion previously held with patient's daughter, who is concerned about independent living and would like her to be moved to [facility] [place] Reports patient cannot feed/clean herself, soils herself, is inconsistent with taking medications, etc. pt reluctantly willing for placement Hypokalemia, resolved Monitor periodically Constipation: no noted sx today TIA/CABG: continue plavix HTN: continue home meds, BP reasonable Slightly elevated TSH likely related to acute illness, recheck ~4wks DVT proph - heparin SQ anticipate SNF once approved
[2017-07-01 23:40] VITALS: BP 155/80; PULSE 67; TEMP 36.7; O2SAT 96
[2017-07-02 06:14] LABS: HEMATOCRIT 41.9 % (37-47); HEMOGLOBIN 13.8 g/dL (12.0-16.0); MEAN CELL VOLUME 88.6 fL (80-100); MEAN CORPUSCULAR HEMOGLOBIN 29.2 pg (25-34); MEAN CORPUSCULAR HGB CONC 32.9 g/dl (32-36); MEAN PLATELET VOLUME 11.9 fL (7.4-10.4); PLATELET COUNT 173 K/uL (130-400); RED CELL DISTRIBUTION WIDTH CV 14.6 % (11.5-14.5); RED CELL DISTRIBUTION WIDTH SD 47.6 fL (36.4-46.3); WHITE BLOOD COUNT 6.56 K/uL (4.8-10.8)
[2017-07-02] MEDS: HEPARIN SOD 5000 UNIT/0.5 ML CARP SQ SCH (07:01)
[2017-07-02 07:09] VITALS: BP 134/66; PULSE 72; TEMP 36.6; O2SAT 94
[2017-07-02] MEDS: MAGNESIUM HYDROXIDE SUSP 30 ML UDC PO SCH (07:44)
[2017-07-02] MEDS: CLOPIDOGREL BISULFATE 75 MG TAB PO SCH (07:44)
[2017-07-02] MEDS: DILTIAZEM HCL 180 MG CAPCR PO SCH (07:44)
[2017-07-02 08:00] VITALS: O2SAT 94
[2017-07-02 10:44] VITALS: BP 134/66; PULSE 72; TEMP 36.6; O2SAT 94
--- NOTE | 2017-07-02 10:49 | Family Medicine Progress Note ---
Progress Note Date of Service Jul 02, 2017. Subjective Pt reports no new complaints this morning. No acute events overnight. Feels she is strong enough to get up out of her chair on her own and get to the bathroom, but is on precautions. Otherwise, is eating and voiding well, denies chest pain or difficulty breathing. A slight wheeze is heard audibly on expiration, but pt says she wheezes from time to time but it doesn't bother her and she has never needed inhalers for this. ROS See HPI for pertinent positives and negatives. Objective Physical Exam Notes: GENERAL: Awake, alert, well-appearing, in no distress EYES: Normal conjunctiva. Sclera non-icteric. NECK: Supple. No nuchal rigidity. FROM. No JVD. RESPIRATORY: Clear to auscultation. CARDIAC: Regular rate, normal rhythm. Extremities warm and well perfused. Pulses equal. ABDOMEN: Soft, non-distended. No tenderness to palpation. No rebound or guarding. No masses. LOWER EXTREMITIES: Calves are equal size bilaterally and non-tender. No edema. No discoloration. NEURO: No motor deficits noted. SKIN: No rash or jaundice noted. Resident Tracking Resident Involvement: Resident Care Provided Care Provided: Adult Hospital Medicine
--- NOTE | 2017-07-02 10:53 | Discharge Summary ---
Discharge Summary Date of Service Jul 02, 2017. Discharge Summary Admission Date: Jun 28, 2017 at 18:32 Discharge Date: Jul 02, 2017 Discharge Disposition: long term facility Principal Diagnosis: Acute metabolic encephalopathy due to UTI Immunizations: Have You Had Influenza Vaccine: Yes History of Tetanus Vaccine?: Yes History of Pneumococcal: Yes History of Hepatitis B Vaccine: No Medication Reconciliation New Medications: Cephalexin Monohydrate (Keflex) 500 Mg Cap 500 MG PO BID for 4 Days, #8 CAP Continued Medications: Clopidogrel Bisulfate (Clopidogrel) 75 Mg Tab 1 TAB PO DAILY Diltiazem Hcl Coated Beads (Cartia Xt) 180 Mg Cap 1 CAP PO DAILY Discharge Exam Pt reports no new complaints this morning. No acute events overnight. Feels she is strong enough to get up out of her chair on her own and get to the bathroom, but is on precautions. Otherwise, is eating and voiding well, denies chest pain or difficulty breathing. A slight wheeze is heard audibly on expiration, but pt says she wheezes from time to time but it doesn't bother her and she has never needed inhalers for this. Pt reports she is ready to go to [facility] today. ROS See HPI for pertinent positives and negatives. Physical Exam GENERAL: Awake, alert, well-appearing, in no distress EYES: Normal conjunctiva. Sclera non-icteric. NECK: Supple. No nuchal rigidity. FROM. No JVD. RESPIRATORY: Clear to auscultation. CARDIAC: Regular rate, normal rhythm. Extremities warm and well perfused. Pulses equal. ABDOMEN: Soft, non-distended. No tenderness to palpation. No rebound or guarding. No masses. LOWER EXTREMITIES: Calves are equal size bilaterally and non-tender. No edema. No discoloration. NEURO: No motor deficits noted. SKIN: No rash or jaundice noted. 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 Junior is an 87 y/o F admitted on 06/28 for altered mental status found to be due to a UTI. Metabolic encephalopathy due to UTI treated w rocephin while inpt - can finish treatment w keflex since granda- sensitive E Coli (Urine cx final for E.coli, pansensitive) WBC WNL, afebrile, VSS Hypokalemia, resolved -outpt f/u Constipation: -outpt f/u TIA/CABG: continue plavix HTN: continue home meds, BP reasonable, continue to follow as otupt Slightly elevated TSH likely related to acute illness, recheck ~4wks DVT proph - heparin SQ utilized while inpt Resident Physician Supervision Note: I interviewed and examined the patient. Discussed with Dr. Rogers and agree with findings and plan as documented in the note. Any exceptions or clarifications are listed here: None Documented By: Rao Mccauley Total Time Spent: Greater than 30 minutes This includes examination of the patient, discharge planning, medication reconciliation, and communication with other providers. Discharge Instructions Please refer to the electronic Patient Visit Report (Discharge Instructions) for additional information. Additional Copies To Grayson Palacios M.D. Resident Tracking Resident Involvement: Resident Care Provided Care Provided: Adult Hospital Medicine
--- NOTE | 2017-07-02 11:49 | Discharge Instructions ---
Discharge Instructions Date of Service Jul 02, 2017. Admission Reason for Admission: Altered Mental Status Discharge Discharge Diagnosis / Problem: Acute metabolic encephalopathy due to UTI Discharge Goals Goal(s): Decrease discomfort, Improve function, Increase independence, Improve disease control, Learn about illness, Diagnostic testing, Therapeutic intervention Activity Recommendations Activity Level: Assistance Required Therapies: Physical Therapy, Occupational Therapy Exercise/Sports Limitations: as tolerated Shower/Bathe: no limitations . Additional Information Patient informed of condition: Yes Advance Directives: Yes DNR: Yes Level of Care: Skilled Communicable Disease: No Prognosis: Stable [place] Catheter: No Instructions / Follow-Up Instructions / Follow-Up 87 y/o F who was admitted on 06/28 for AMS -- found to be due to UTI pansensitive E. coli. Mental status changes resolved. WBC normal, afebrile and vitals stable for a few days before discharge and on day of discharge. Per PT, recommend rehab/assisted living. Antibiotics: still needs 4 more days of PO Keflex 500mg BID. Hypokalemia, resolved - do not recommend recheck. Constipation: recommend miralax PRN TIA/CABG: continue plavix HTN: continue home cardizem 180 OD PO Slightly elevated TSH - asymtpomatic -- should be rechecked in 4 weeks as outpatient DVTP: SCDs/heparin given here Current Hospital Diet Patient's current hospital diet: Regular Diet Discharge Diet Recommended Diet: Regular Diet Pending Studies Studies pending at discharge: no Medical Emergencies . Who to Call and When: Medical Emergencies: If at any time you feel your situation is an emergency, please call 911 immediately. . Non-Emergent Contact Non-Emergency issues call your: Primary Care Provider . . "Provider Documentation" section prepared by Vida Rogers. . Core Measure Problem Core Measures: None
[2017-07-02] MEDS ORDERED: CEPH500C2 PO (11:50)
== END 2017-07-02 13:10 | DRG 689 ==
LOC: C.EDB 14:20 → C.4E 18:32 → ENRESERV 19:16
PROVIDERS: ADMIT Family Medicine; ATTEND Family Medicine
DX: N39.0 Urinary tract infection, site not specified (principal); G93.41 Metabolic encephalopathy; B96.20 Unspecified Escherichia coli [E. coli] as the cause of diseases classified elsewhere; E87.6 Hypokalemia; K59.00 Constipation, unspecified; R94.6 Abnormal results of thyroid function studies; I10 Essential (primary) hypertension; J45.909 Unspecified asthma, uncomplicated; Z51.81 Encounter for therapeutic drug level monitoring; Z79.899 Other long term (current) drug therapy; Z79.02 Long term (current) use of antithrombotics/antiplatelets; Z66 Do not resuscitate; Z86.73 Personal history of transient ischemic attack (TIA), and cerebral infarction without residual deficits; Z95.1 Presence of aortocoronary bypass graft; Z87.440 Personal history of urinary (tract) infections; Z85.3 Personal history of malignant neoplasm of breast; Z88.8 Allergy status to other drugs, medicaments and biological substances